=== PATIENT | female | born 1935 | race Caucasian/White ===

== ENCOUNTER 2018-06-23 22:24 | Inpatient (IN) | payer OTHER, BC ==
[2018-06-23 23:48] LABS: Absolute Lymphocytes (CBC) 1.3 K/uL (0.7-4.9); Absolute Monocytes 0.5 K/uL (0.1-1.3); Basophils % 0.4 % (0-1.3); Eosinophils % 0.4 % (0-4.4); Lymphocytes % 11.6 % (15.3-44.8); MCH 33.4 pg (27.0-35.0); MCV 97.1 fL (80-100); MPV 8.1 fL (7.6-11.3); Monocytes % 4.4 % (3.3-12.3); Protime INR 1.06
[2018-06-23 23:59] LABS: ALT/SGPT 21 U/L (12-78); AST/SGOT 24 U/L (15-37); Albumin 3.5 g/dL (3.4-5.0); Alkaline Phosphatase 103 U/L (45-117); BUN Blood Urea Nitrogen 31 mg/dL (7-18); Bicarbonate 25 mmol/L (21-32); Bilirubin Direct < 0.1 mg/dL (0-0.2); Bilirubin Total 0.2 mg/dL (0.2-1.0); Glucose Level 152 mg/dL (74-106); Magnesium 1.6 mg/dL (1.8-2.4); NT PRO-BNP 331 pg/mL (<450); Potassium 4.2 mmol/L (3.5-5.1); Protein, Total 6.4 g/dL (6.4-8.2); Sodium Level 144 mmol/L (136-145); Troponin (Emerg Dept Use Only) < 0.02 ng/mL (0.0-0.045)
--- NOTE | 2018-06-24 01:49 | EDPHYS ---
Physician Documentation [facility] Name: Kirsten Mayfield Age: 82 yrs Sex: Female : 1935 Arrival Date: 06/23/2018 Time: 22:28 Bed 5 Private MD: Joao Parkinson HPI: 06/23 23:29 This 82 yrs old Female presents to ER via Wheelchair with complaints of Leg angelica Pain, History of blood clots. 23:29 The patient presents with decreased range of motion, pain. The complaints affect the angelica lateral aspect of left thigh, lateral aspect of left calf, left hamstring, left calf, medial aspect of left thigh, medial aspect of left calf, left quadriceps and left ayoub. Context: The problem was sustained at an unknown site. Onset: The symptoms/episode began/occurred today. Modifying factors: The symptoms are alleviated by nothing. the symptoms are aggravated by movement. Associated signs and symptoms: The patient has no apparent associated signs or symptoms. Severity of symptoms: At their worst the symptoms were mild, in the emergency department the symptoms are unchanged. The patient has experienced similar episodes in the past, several times. Historical: - Allergies: 22:59 No Known Allergies; fc - Home Meds: 22:59 Lovenox 60 mg/0.6 mL Sub-Q syrg every 12 hours [Active]; omeprazole 40 mg Oral cpDR 1 fc cap once daily [Active]; valsartan-hydrochlorothiazide 160-12.5 mg oral tab 1 tab once daily [Active]; cyclobenzaprine 5 mg Oral tab 1 tab nightly [Active]; donepezil 10 mg oral tab 1 tab once daily [Active]; atorvastatin 20 mg oral tab 1 tab nightly [Active]; sertraline 50 mg oral tab 1 tab once daily [Active]; multivitamin oral tab daily [Active]; metoprolol tartrate 50 mg Oral tab 1 tab 2 times per day [Active]; amlodipine 5 mg tab 1 tab twice a day [Active]; Iron 27 mg daily [Active]; - PMHx: 22:57 colon cancer; ak1 22:59 colon cancer; DVT; Hernia; GERD; Hypertension; High Cholesterol; Dementia; CHF; fc - PSHx: 22:57 colon cancer sx; ak1 22:59 colon cancer sx; port-a-cath insertion and removal; emily filter; fc - Immunization history:: Last tetanus immunization: unknown, Pneumococcal vaccine is up to date, Flu vaccine is up to date. - Social history:: Smoking status: Patient/guardian denies using tobacco. - Ebola Screening: : Patient negative for fever greater than or equal to 101.5 degrees Fahrenheit, and additional compatible Ebola Virus Disease symptoms Patient denies exposure to infectious person Patient denies travel to an Ebola-affected area in the 21 days before illness onset. - Family history:: not pertinent. ROS: 23:29 Constitutional: Negative for fever, chills, and weight loss, Eyes: Negative for injury, angelica pain, redness, and discharge, ENT: Negative for injury, pain, and discharge, Neck: Negative for injury, pain, and swelling, Cardiovascular: Negative for chest pain, palpitations, and edema, Respiratory: Negative for shortness of breath, cough, wheezing, and pleuritic chest pain, Abdomen/GI: Negative for abdominal pain, nausea, vomiting, diarrhea, and constipation, Back: Negative for injury and pain, : Negative for injury, bleeding, discharge, and swelling, Skin: Negative for injury, rash, and discoloration, Neuro: Negative for headache, weakness, numbness, tingling, and seizure, Psych: Negative for depression, anxiety, suicide ideation, homicidal ideation, and hallucinations, Allergy/Immunology: Negative for hives, rash, and allergies, Endocrine: Negative for neck swelling, polydipsia, polyuria, polyphagia, and marked weight changes, Hematologic/Lymphatic: Negative for swollen nodes, abnormal bleeding, and unusual bruising. 23:29 MS/extremity: Positive for decreased range of motion, pain, of the left leg. Exam: 23:29 Constitutional: This is a well developed, well nourished patient who is awake, alert, angelica and in no acute distress. Head/Face: Normocephalic, atraumatic. Eyes: Pupils equal round and reactive to light, extra-ocular motions intact. Lids and lashes normal. Conjunctiva and sclera are non-icteric and not injected. Cornea within normal limits. Periorbital areas with no swelling, redness, or edema. ENT: Nares patent. No nasal discharge, no septal abnormalities noted. Tympanic membranes are normal and external auditory canals are clear. Oropharynx with no redness, swelling, or masses, exudates, or evidence of obstruction, uvula midline. Mucous membranes moist. Neck: Trachea midline, no thyromegaly or masses palpated, and no cervical lymphadenopathy. Supple, full range of motion without nuchal rigidity, or vertebral point tenderness. No Meningismus. Chest/axilla: Normal chest wall appearance and motion. Nontender with no deformity. No lesions are appreciated. Cardiovascular: Regular rate and rhythm with a normal S1 and S2. No gallops, murmurs, or rubs. Normal PMI, no JVD. No pulse deficits. Respiratory: Lungs have equal breath sounds bilaterally, clear to auscultation and percussion. No rales, rhonchi or wheezes noted. No increased work of breathing, no retractions or nasal flaring. Abdomen/GI: Soft, non-tender, with normal bowel sounds. No distension or tympany. No guarding or rebound. No evidence of tenderness throughout. Back: No spinal tenderness. No costovertebral tenderness. Full range of motion. Female : Normal external genitalia. Skin: Warm, dry with normal turgor. Normal color with no rashes, no lesions, and no evidence of cellulitis. Neuro: Awake and alert, GCS 15, oriented to person, place, time, and situation. Cranial nerves II-XII grossly intact. Motor strength 5/5 in all extremities. Sensory grossly intact. Cerebellar exam normal. Normal gait. Psych: Awake, alert, with orientation to person, place and time. Behavior, mood, and affect are within normal limits. 23:29 Musculoskeletal/extremity: Extremities: noted in the left leg: decreased ROM, pain, ROM: full active range of motion, full passive range of motion, Circulation is intact in all extremities. Compartment Syndrome exam of affected extremity: is normal. DVT Exam: no swelling, no tenderness, negative Homans' sign noted on exam, no appreciated bluish discoloration, no erythema, no increased warmth, pain. Vital Signs: 22:30 BP 156 / 72; Pulse 74; Resp 18; Temp 98.0(O); Pulse Ox 100% on R/A; Weight 55.79 kg fc (R); Height 5 ft. 3 in. (160.02 cm) (R); Pain 3/10; 23:44 BP 122 / 59; Pulse 66; Resp 17; Temp 98; Pulse Ox 97% on R/A; Pain 3/10; ak1 06/24 02:27 BP 122 / 55; Pulse 72; Resp 12; Temp 98.3; Pulse Ox 99% on R/A; Pain 0/10; ak1 03:31 BP 124 / 51; Pulse 76; Resp 18; Pulse Ox 96% ; ea 06/23 22:30 Body Mass Index 21.79 (55.79 kg, 160.02 cm) MDM: 06/23 22:36 Patient medically screened. [facility] 23:32 Data reviewed: vital signs, nurses notes, lab test result(s), EKG, radiologic studies, [facility] CT scan, doppler, plain films. 06/23 23:11 Order name: Basic Metabolic Panel; Complete Time: 01:37 06/23 23:11 Order name: CBC with Diff; Complete Time: 01:37 06/23 23:11 Order name: LFT's; Complete Time: 01:37 06/23 23:11 Order name: Magnesium; Complete Time: 01:37 06/23 23:11 Order name: NT PRO-BNP; Complete Time: 01:37 06/23 23:11 Order name: PT-INR; Complete Time: 01:37 06/23 23:11 Order name: Troponin (emerg Dept Use Only); Complete Time: 01:37 06/24 01:45 Order name: Lipase [facility] 06/24 01:46 Order name: Urine Culture [facility] 06/24 02:12 Order name: Basic Metabolic Panel [facility] 06/24 02:12 Order name: Basic Metabolic Panel [facility] 06/24 02:12 Order name: CBC with Automated Diff [facility] 06/24 02:12 Order name: CBC with Automated Diff [facility] 06/24 02:12 Order name: Troponin I [facility] 06/23 23:11 Order name: XRAY Chest (1 view) 06/23 23:12 Order name: Extrem Venous W Compression Jorge US 06/23 23:28 Order name: CT Abd/Pelvis - W/Contrast [facility] 06/24 02:12 Order name: Troponin I [facility] 06/24 02:12 Order name: Troponin I [facility] 06/24 02:12 Order name: Chest Single View [facility] 06/24 02:12 Order name: Chest Single View [facility] 06/24 02:56 Order name: Urine Dipstick--Ancillary (enter results) 2 06/24 03:35 Order name: Urine Dipstick-Ancillary [facility] 06/23 23:11 Order name: EKG; Complete Time: 23:19 06/23 23:11 Order name: Cardiac monitoring; Complete Time: 23:38 06/23 23:11 Order name: EKG - Nurse/Tech; Complete Time: 23:39 06/23 23:11 Order name: IV Saline Lock; Complete Time: 02:27 06/23 23:11 Order name: Labs collected and sent; Complete Time: 23:20 06/23 23:11 Order name: O2 Per Protocol; Complete Time: 23:20 06/23 23:11 Order name: O2 Sat Monitoring; Complete Time: 23:21 06/24 01:46 Order name: Urine Dipstick-Ancillary (obtain specimen); Complete Time: 02:53 [facility] 06/24 02:12 Order name: Consistent Carb (ADA) [address] EDIA 06/24 02:12 Order name: EKG Electrocardiogram [facility] 06/24 02:12 Order name: EKG Electrocardiogram EDMS 06/24 02:12 Order name: EKG Electrocardiogram EDMS 06/24 02:12 Order name: EKG Electrocardiogram EDMS Administered Medications: 06/24 00:54 Drug: NS 0.9% 1000 ml Route: IV; Rate: 125 ml/hr; Site: right upper arm; ak1 02:26 Follow up: IV Status: Infusion continued upon admission ak1 02:23 Drug: Pepcid 20 mg Route: IVP; Site: right upper arm; ak1 02:25 Follow up: Response: No adverse reaction ak1 02:23 Drug: Magnesium Sulfate 1 grams Route: IVPB; Infused Over: 1 hrs; Site: right upper arm;ak1 02:26 Follow up: IV Status: Infusion continued upon admission ak1 02:24 Drug: Lovenox 1 mg/kg Route: Sub-Q; Site: left thigh; ak1 02:26 Follow up: Response: No adverse reaction ak1 02:24 Drug: fentaNYL (PF) 25 mcg Route: IVP; Site: right upper arm; ak1 02:25 Follow up: Response: No adverse reaction ak1 02:24 Drug: Zofran 4 mg Route: IVP; Site: right upper arm; ak1 02:25 Follow up: Response: No adverse reaction ak1 02:24 Drug: Rocephin - (cefTRIAXone) 1 grams Route: IVPB; Infused Over: 30 mins; Site: right ak1 upper arm; 02:25 Follow up: IV Status: Completed infusion ak1 Disposition: 06/24/18 01:49 Hospitalization ordered by Solis Gonzalez for Observation. Preliminary diagnosis are Acute embolism and thrombosis of femoral vein, Nausea, Unspecified kidney failure, Hypomagnesemia, Pain in left leg - left posterior medial thigh hematoma. - Bed requested for Telemetry/MedSurg (observation). - Status is Observation. ea - Condition is Fair. - Problem is new. - Symptoms have improved. UTI on Admission? No Signatures: Dispatcher [employer] EDMS Melanie Souza RN RN kl Anderson, Corey, MD MD cha Chretien, Felicia, RN RN fc Krenek, Amber, RN RN akAnkita Jessica RN RN ea Corrections: (The following items were deleted from the chart) 02:12 01:49 Hospitalization Ordered by Solis Gonzalez MD for Observation. Preliminary diagnosis angelica is Acute embolism and thrombosis of femoral vein; Nausea; Unspecified kidney failure; Hypomagnesemia. Bed requested for Telemetry/MedSurg (observation). Status is Observation. Condition is Fair. Problem is new. Symptoms have improved. UTI on Admission? No. angelica 03:04 02:12 06/24/2018 01:49 Hospitalization Ordered by Solis Gonzalez MD for Observation. kl Preliminary diagnosis is Acute embolism and thrombosis of femoral vein; Nausea; Unspecified kidney failure; Hypomagnesemia; Pain in left leg - left posterior medial thigh hematoma. Bed requested for Telemetry/MedSurg (observation). Status is Observation. Condition is Fair. Problem is new. Symptoms have improved. UTI on Admission? No. angelica 03:45 03:04 06/24/2018 01:49 Hospitalization Ordered by Solis Gonzalez MD for Observation. ea Preliminary diagnosis is Acute embolism and thrombosis of femoral vein; Nausea; Unspecified kidney failure; Hypomagnesemia; Pain in left leg - left posterior medial thigh hematoma. Bed requested for Telemetry/MedSurg (observation). Status is Observation. Condition is Fair. Problem is new. Symptoms have improved. UTI on Admission? No. kl
--- NOTE | 2018-06-24 01:49 | ER ---
Nurse's Notes [facility] Name: Kirsten Mayfield Age: 82 yrs Sex: Female : 1935 Arrival Date: 06/23/2018 Time: 22:28 Bed 5 Private MD: Diagnosis: Acute embolism and thrombosis of femoral vein;Nausea;Unspecified kidney failure;Hypomagnesemia;Pain in left leg-left posterior medial thigh hematoma Presentation: 06/23 22:30 Presenting complaint: Patient states: that she is having left leg pain that starts at fc the top and goes down to the ankle. States it has gotten worse over the day. Also having nausea so she is not eating well. Transition of care: patient was not received from another setting of care. Onset of symptoms was June 23, 2018. Risk Assessment: Do you want to hurt yourself or someone else? Patient reports no desire to harm self or others. Initial Sepsis Screen: Does the patient meet any 2 criteria? Yes Does the patient have a suspected source of infection? No. Patient's initial sepsis screen is negative. Care prior to arrival: None. 22:30 Method Of Arrival: Wheelchair 22:30 Acuity: STEFFEN 3 fc Historical: - Allergies: 22:59 No Known Allergies; fc - Home Meds: 22:59 Lovenox 60 mg/0.6 mL Sub-Q syrg every 12 hours [Active]; omeprazole 40 mg Oral cpDR 1 fc cap once daily [Active]; valsartan-hydrochlorothiazide 160-12.5 mg oral tab 1 tab once daily [Active]; cyclobenzaprine 5 mg Oral tab 1 tab nightly [Active]; donepezil 10 mg oral tab 1 tab once daily [Active]; atorvastatin 20 mg oral tab 1 tab nightly [Active]; sertraline 50 mg oral tab 1 tab once daily [Active]; multivitamin oral tab daily [Active]; metoprolol tartrate 50 mg Oral tab 1 tab 2 times per day [Active]; amlodipine 5 mg tab 1 tab twice a day [Active]; Iron 27 mg daily [Active]; - PMHx: 22:57 colon cancer; ak1 22:59 colon cancer; DVT; Hernia; GERD; Hypertension; High Cholesterol; Dementia; CHF; fc - PSHx: 22:57 colon cancer sx; ak1 22:59 colon cancer sx; port-a-cath insertion and removal; emily filter; fc - Immunization history:: Last tetanus immunization: unknown, Pneumococcal vaccine is up to date, Flu vaccine is up to date. - Social history:: Smoking status: Patient/guardian denies using tobacco. - Ebola Screening: : Patient negative for fever greater than or equal to 101.5 degrees Fahrenheit, and additional compatible Ebola Virus Disease symptoms Patient denies exposure to infectious person Patient denies travel to an Ebola-affected area in the 21 days before illness onset. - Family history:: not pertinent. Screenin:30 Abuse screen: Denies threats or abuse. Nutritional screening: No deficits noted. fc Tuberculosis screening: No symptoms or risk factors identified. Fall Risk Fall in past 12 months (25 points). Secondary diagnosis (15 points) dementia, No IV (0 pts). Ambulatory Aid- Crutches/Cane/Walker (15 pts). Gait- Weak (10 pts.). Mental Status- Overestimates/Forgets Limitations (15 pts.). Total [place] Fall Scale indicates High Risk Score (45 or more points). Fall prevention measures have been instituted. Side Rails Up X 2 Placed Close to Nursing Station Frequent Obs/Assessments Occuring Family Present and informed to notify staff if the need to leave the bedside As available patient and family educated on Fall Prevention Program and Strategies. Assessment: 22:54 General: Appears in no apparent distress. Behavior is calm, cooperative. ak1 22:54 Pain: Complains of pain in left leg. Neuro: No deficits noted. Cardiovascular: No ak1 deficits noted. Respiratory: No deficits noted. GI: No signs and/or symptoms were reported involving the gastrointestinal system. : No signs and/or symptoms were reported regarding the genitourinary system. EENT: No signs and/or symptoms were reported regarding the EENT system. Derm: No signs and/or symptoms reported regarding the dermatologic system. Musculoskeletal: Reports pain in left leg pt stated she places her Lovenox SUBQ injections in her legs, she stated she doesn't want to "pop my hernia in my stomach". 23:42 Reassessment: Patient appears in no apparent distress at this time. No changes from ak1 previously documented assessment. Patient is alert, oriented x 3, equal unlabored respirations, skin warm/dry/pink. pt and family informed of need for CT and US. 06/24 00:31 Reassessment: charge nurse at bedside for midline placement. ak1 01:06 Reassessment: pt in CT. ak1 02:21 Reassessment: Patient appears in no apparent distress at this time. No changes from ak1 previously documented assessment. Patient and/or family updated on plan of care and expected duration. Pain level reassessed. Patient is alert, oriented x 3, equal unlabored respirations, skin warm/dry/pink. 03:31 Reassessment: Patient and/or family updated on plan of care and expected duration. Pain ea level reassessed. Patient is alert, oriented x 3, equal unlabored respirations, skin warm/dry/pink. Report called to receiving nurse Sarah on second floor. Vital Signs: 06/23 22:30 BP 156 / 72; Pulse 74; Resp 18; Temp 98.0(O); Pulse Ox 100% on R/A; Weight 55.79 kg fc (R); Height 5 ft. 3 in. (160.02 cm) (R); Pain 3/10; 23:44 BP 122 / 59; Pulse 66; Resp 17; Temp 98; Pulse Ox 97% on R/A; Pain 3/10; ak1 06/24 02:27 BP 122 / 55; Pulse 72; Resp 12; Temp 98.3; Pulse Ox 99% on R/A; Pain 0/10; ak1 03:31 BP 124 / 51; Pulse 76; Resp 18; Pulse Ox 96% ; ea 06/23 22:30 Body Mass Index 21.79 (55.79 kg, 160.02 cm) fc ED Course: 06/23 22:28 Patient arrived in ED. es 22:30 Arm band placed on Patient placed in an exam room, on a stretcher. fc 22:30 Patient has correct armband on for positive identification. Placed in gown. Bed in low fc position. Call light in reach. Side rails up X 1. Pulse ox on. NIBP on. 22:36 Joao Mckinley MD is Attending Physician. angelica 22:43 Evon Tomas, RN is Primary Nurse. ak1 22:51 Triage completed. fc 22:54 Missed attempt(s): 22 gauge in right antecubital area. Bleeding controlled, band aid ak1 applied, catheter tip intact. 23:39 X-ray completed. Portable x-ray completed in exam room. Patient tolerated procedure kp1 well. 23:42 XRAY Chest (1 view) In Process Unspecified. EDMS 06/24 00:16 Radiology exam delayed due to Ultrasound being done at this time. kw1 00:26 Extrem Venous W Compression Jorge US In Process Unspecified. EDMS 00:34 Ultrasound completed. Patient tolerated well. cy 01:[address] via stretcher. kw1 01:16 CT Abd/Pelvis - W/Contrast In Process Unspecified. EDMS 01:18 CT completed. Patient tolerated procedure well. Patient moved back from CT. kw1 01:47 Solis Gonzalez MD is Hospitalizing Provider. angelica 03:29 No provider procedures requiring assistance completed. Patient admitted, IV remains in ea place. Administered Medications: 00:54 Drug: NS 0.9% 1000 ml Route: IV; Rate: 125 ml/hr; Site: right upper arm; ak1 02:26 Follow up: IV Status: Infusion continued upon admission ak1 02:23 Drug: Pepcid 20 mg Route: IVP; Site: right upper arm; ak1 02:25 Follow up: Response: No adverse reaction ak1 02:23 Drug: Magnesium Sulfate 1 grams Route: IVPB; Infused Over: 1 hrs; Site: right upper arm;ak1 02:26 Follow up: IV Status: Infusion continued upon admission ak1 02:24 Drug: Lovenox 1 mg/kg Route: Sub-Q; Site: left thigh; ak1 02:26 Follow up: Response: No adverse reaction ak1 02:24 Drug: fentaNYL (PF) 25 mcg Route: IVP; Site: right upper arm; ak1 02:25 Follow up: Response: No adverse reaction ak1 02:24 Drug: Zofran 4 mg Route: IVP; Site: right upper arm; ak1 02:25 Follow up: Response: No adverse reaction ak1 02:24 Drug: Rocephin - (cefTRIAXone) 1 grams Route: IVPB; Infused Over: 30 mins; Site: right ak1 upper arm; 02:25 Follow up: IV Status: Completed infusion ak1 Outcome: 01:49 Decision to Hospitalize by Provider. angelica 02:30 Instructed on the need for admit. ea 03:30 Admitted to Med/surg accompanied by tech, room 211, Report called to Receiving nurse larry Smith on second floor 03:30 Condition: stable ea 03:45 Patient left the ED. larry Signatures: Dispatcher [employer] Joao Zeng MD MD cha Salyer, Edna es Chretien, Felicia, RN RN Evon Galindo RN RN ak1 Alea Barrera kp1 Ankita Rouse RN RN ea Wilhelm, Kimberly kw Boubacar Reis
[2018-06-24] MEDS ORDERED: ONDANSETRON 4 MG/2 ML VIAL IV PRN (02:04)
[2018-06-24] MEDS ORDERED: FENTANYL CITR 100 MCG/2 ML ONE (02:18)
[2018-06-24] MEDS ORDERED: ENOXAPARIN 80 MG/0.8 ML SQ ONE (02:18)
[2018-06-24] MEDS ORDERED: MAGNESIUM SULFATE 1 gm IVPB 1 GM/100 ML BAG IV ONE (02:18)
[2018-06-24] MEDS ORDERED: ONDANSETRON 4 MG/2 ML VIAL ONE (02:18)
[2018-06-24] MEDS ORDERED: FAMOTIDINE 20 MG/2 ML VIAL IV ONE (02:19)
[2018-06-24] MEDS ORDERED: CEFTRIAXONE/SWI 1gm 1 GM/10 ML SYR ONE (02:19)
[2018-06-24 03:35] LABS: Urine Blood NEGATIVE (NEG); Urine Glucose NEGATIVE (NEG); Urine Protein NEGATIVE (NEG); Urine Specific Gravity 1.015 (1.005-1.030); Urine pH 5.5 (5.0-7.0)
[2018-06-24 04:11] VITALS: BMI 22.4
[2018-06-24] MEDS: NA CHLORIDE 0.9% 1,000 ML IV SCH ×3 (04:37→19:15)
[2018-06-24] MEDS: ACETAMINOPHEN 500 MG TAB PO PRN (06:02)
--- NOTE | 2018-06-24 07:03 | EKG ---
Test Date: 2018-06-23 Test Time: 23:34:19 Air Traffic Control Specialist: LETTY MEASUREMENT RESULTS: Intervals: Rate: 70 MI: 160 QRSD: 76 QT: 396 QTc: 427 [place]: P: 41 MI: 160 QRS: -27 T: 62 INTERPRETIVE STATEMENTS: Normal sinus rhythm Normal ECG Compared to ECG 02/16/2014 09:51:41 Atrial premature complex(es) no longer present Electronically Signed On 06-24-18 07:02:59 MACHINE LEATHER TRIMMER by Kiel Villanueva
[2018-06-24] MEDS ORDERED: ASPIRIN EC 81 MG TAB PO SCH (09:00)
[2018-06-24] MEDS ORDERED: FAMOTIDINE 20 MG/2 ML VIAL IV SCH (09:00)
[2018-06-24] MEDS: MORPHINE 4 MG/ML SYR IV PRN ×4 (09:12→21:17)
[2018-06-24] MEDS: MAGNESIUM OXIDE 400 MG TAB PO SCH ×2 (09:13→21:09)
--- NOTE | 2018-06-24 09:29 | RAD REPORT ---
EXAM DESCRIPTION: CTAbdomen Pelvis W Contrast - 06/24/2018 3:02 am CLINICAL HISTORY: Abdominal pain. ABD PAIN COMPARISON: Lumbar Spine 3 Views dated 08/18/2016 TECHNIQUE: Biphasic CT imaging of the abdomen and pelvis was performed with 100 ml non-ionic IV cont rast. All CT scans are performed using dose optimization technique as appropriate and may include automated exposure control or mA/KV adjustment according to patient size. FINDINGS: The inferior lung bases are emphysematous but clear. Mild diffuse fatty liver is present. The spleen, pancreas, adrenal glands are normal. Renal cysts are present bilaterally without hydronephrosis. IVC filter is in place. Aortic atherosclerosis. No bowel obstruction, free air, free fluid or abscess. Focal ventral hernias are present with postsur gical clips noted. Postsurgical changes are present about the right colon. No evidence of significan t lymphadenopathy. Thickening of the left posteromedial thigh adductor musculature seen, probably rel ated to hematoma or muscle thickening. Moderate chronic L1 compression fracture is present. 10 mm anterolisthesis of L4 on 5. IMPRESSION: Partially visualized thickening posterior tibial left thigh adductor musculature may be related to muscle trauma or hematoma. Myositis or a soft tissue mass within the muscle is considered less likely. Ventral hernia containing colon without obstruction.
--- NOTE | 2018-06-24 09:41 | RAD REPORT ---
EXAM DESCRIPTION: US - Extrem Venous W Compress Jorge - 06/24/2018 12:29 am CLINICAL HISTORY: PAIN Bilateral leg edema and swelling. COMPARISON: No comparisons TECHNIQUE: Real-time sonographic interrogation of the left and right lower extremity deep venous sys tems was performed. FINDINGS: Partial compressibility is seen distal left femoral vein. Elsewhere, no evidence of DVT se en bilaterally. IMPRESSION: Partial compressibility distal left femoral vein probably is related old thrombus. There is no convincing evidence of acute bilateral DVT.
--- NOTE | 2018-06-24 09:53 | RAD REPORT ---
EXAM DESCRIPTION: RAD - Chest Single View - 06/23/2018 11:41 pm CLINICAL HISTORY: DVT Chest pain. COMPARISON: CHEST SINGLE VIEW dated 02/16/2014 FINDINGS: Portable technique limits examination quality. The lungs are grossly clear. The heart is normal in size. No displaced fractures.Mildly tortuous thor acic aorta. IMPRESSION: No acute intrathoracic process suspected.
--- NOTE | 2018-06-24 12:24 | RAD REPORT ---
EXAM DESCRIPTION: RAD - Hip Bilateral With Pelvis - 06/24/2018 11:33 am CLINICAL HISTORY: rule out fracture Left anterior groin pain COMPARISON: PELVIS dated 02/16/2014; Abdomen Pelvis W Contrast dated 06/24/2018 FINDINGS: Diffuse osteopenia is present. [id number] osteoarthritis is present. No fracture, di slocation or AVN. Contrast is present in urinary bladder.
[2018-06-24 17:17] LABS: Absolute Lymphocytes (CBC) 1.7 K/uL (0.7-4.9); Absolute Monocytes 0.8 K/uL (0.1-1.3); Absolute Neutrophil 5.4 K/uL (1.8-8.0); Basophils % 0.4 % (0-1.3); Eosinophils % 1.7 % (0-4.4); Hematocrit 24.1 % (36.0-45.0); Lymphocytes % 21.6 % (15.3-44.8); MCH 33.2 pg (27.0-35.0); MCV 98.4 fL (80-100); MPV 7.3 fL (7.6-11.3); Monocytes % 9.8 % (3.3-12.3); RBC Red Blood Cell Count 2.45 M/uL (3.86-4.86)
[2018-06-24] MEDS: ATORVASTATIN CALCIUM 20 MG PO SCH (17:28)
[2018-06-24 17:33] LABS: Potassium 3.8 mmol/L (3.5-5.1)
[2018-06-24] MEDS: CYCLOBENZAPRINE 5 MG PO SCH (21:09)
[2018-06-24] MEDS: METOPROLOL TARTRATE 50 MG PO SCH (21:10)
[2018-06-25] MEDS ORDERED: ENOXAPARIN 60 MG/0.6 ML SQ SCH (06:00)
[2018-06-25 06:02] LABS: Potassium 4.3 mmol/L (3.5-5.1)
[2018-06-25 06:22] LABS: Absolute Monocytes 0.8 K/uL (0.1-1.3); Basophils % 0.4 % (0-1.3); Eosinophils % 1.4 % (0-4.4); Hematocrit 23.4 % (36.0-45.0); Lymphocytes % 11.5 % (15.3-44.8); MCH 33.4 pg (27.0-35.0); MCV 97.1 fL (80-100); MPV 7.7 fL (7.6-11.3); RBC Red Blood Cell Count 2.41 M/uL (3.86-4.86)
[2018-06-25] MEDS: NA CHLORIDE 0.9% 1,000 ML IV SCH (06:25)
[2018-06-25] MEDS: DONEPEZIL HCL 10 MG PO SCH (06:26)
--- NOTE | 2018-06-25 06:33 | HP ---
Date of Admission: 06/24/2018 Chief Complaint: Leg pain. History Of Present Illness: This is an 82-year-old female patient with history of colon cancer and D VT who failed oral anticoagulant therapy, has been on Lovenox injection at home that she gives hersel f for last several years. She has done well with this. Lately she is having some memory problem and yesterday she came into emergency room because of complaints of pain in her left proximal thigh to m id thigh and pain is on medial and lateral aspect. The patient gives her Lovenox injection in latera l thigh. She has some old bruises and small hematoma on the right lateral thigh from this Lovenox [facility]. After she was evaluated in the emergency room, she was admitted to hospital. She denies an y fall or injury. No blood in stool. When I saw her this morning, the patient reported there was a large area of rash which was not there yesterday. The patient's daughter tells me that the patient i s not able to get up and walk because of this leg pain. The patient lives by herself, so we do not k now if there was any fall or injury that she may not be able to recollect. After I saw today, order was written for physical therapy consultation and nurse contacted and informed me that the patient wa s able to ambulate somewhat with physical therapy, but her heart rate went up to 200 and they had to get her back in the bed and then her heart rate subsided to 72 range. At that time, repeat blood wor k was ordered and her hemoglobin has now dropped down to 8.1 from 11 when she came in. Past Medical History: Significant for hypertension, nocturnal leg cramps, hyperlipidemia, colon canc er, diverticulosis, abdominal wall hernia, impaired fasting glucose, gastroesophageal reflux disease. Past Surgical History: Significant for partial colectomy in 2006 for colon cancer and removal of ski n cancer. Family History: Significant for coronary artery disease, diabetes, hypertension. Social History: Negative for smoking or alcohol use. Allergies: NO KNOWN ALLERGIES. Review of Systems: Musculoskeletal: As mentioned above. Dermatology: As mentioned above. All other systems reviewed and negative. Physical Examination: Vital Signs: Last temperature 96.8, pulse 65, respiratory rate 20, blood pressure 123/57, oxygen sat uration 95%. Height 5 feet 3 inches, weight 126 pounds. Oxygen saturation 95%. General: Awake, alert, oriented, not in distress. HEENT: Head atraumatic, normocephalic. Conjunctivae nonerythematous. Sclerae white. Mouth, no thr ush or edema noted. Ears/Nose, no mass, lesion, discharge noted. Neck: Supple. No JVD, lymph nodes, bruit, thyromegaly noted. Lungs: Bilateral good equal air entry. Clear to auscultation. No rhonchi. No rales. Heart: Normal heart sounds, no murmur or gallop. Abdomen: Abdomen shows abdominal wall hernia which is nothing new, is an old finding. No evidence o f any obstruction. No tenderness and both anterior abdominal wall on the right and the left side has appearance of old bruising. The patient reports that she does not give any Lovenox injection in her abdominal wall because of hernia. She is concerned about giving an injection in the abdominal wall. Otherwise, abdomen is soft. No guarding, rigidity, tenderness, distention. No hepatosplenomegaly. No bruit. Extremities: Both lateral thigh has old bruising. Right lateral thigh has small hematoma about 2 to 3 cm in size. Left medial thigh has large area of rash, new contusion, which was not present yester day as per patient's family. Skin: No rash, ulcer, cellulitis. Lymphatics: No lymph node enlargement in neck, supraclavicular, infraclavicular region. Neuro: No focal neurological deficit. Chest: Unremarkable. External Genitalia: Deferred. Rectal: Deferred. Laboratory Data: Venous Doppler of lower extremity shows old blood clot in left leg. No new thrombu s. CAT scan of abdomen and pelvis negative for any acute abnormality, evidence of abdominal wall her susan present, otherwise no other acute findings. White count 10.9, hemoglobin 11, and platelets 280. Repeat hemoglobin this afternoon was 8.1. Sodium 144, potassium 4.2, chloride 109, bicarb 25, BUN 3 1, creatinine 1.10, glucose 152, magnesium 1.6. Liver function tests unremarkable. Troponin less th an 0.02. Lipase 150. Urinalysis negative. Impression: 1.Acute blood loss anemia. 2.Contusion, left thigh. Coagulation therapy. 3.Hypercoagulable state. 4.Hypertension. 5.Colon cancer. 6.Hyperlipidemia. 7.Gastroesophageal reflux disease. 8.Impaired fasting glucose. 9.Diverticulosis. 10.Abdominal wall hernia. Plan: Admit the patient to hospital for further evaluation and management of this problem. The zahra ent is appropriate for inpatient and is expected to spend 2 midnights in hospital. The patient has d ropped 3 g of hemoglobin from the time she presented to the emergency room until this afternoon and s he is symptomatic from this anemia with significant tachycardia problem, which was noted today when s he was trying to ambulate with physical therapy. After she was brought to room, her vital signs got stabilized. We will go ahead and monitor her blood work again tomorrow morning, if necessary conside r blood transfusion. We will not give any anticoagulation therapy at this point. We will have to ma ke decision about whether we will continue her Lovenox or change it to something else. Obviously, it is important to keep in mind that she has failed oral anticoagulation therapy in the past, and while on oral anticoagulation therapy, she developed blood clots over last few years to several years. Amrik arias has been on Lovenox and has done very well and has not had any new blood clot ever since she was on Lovenox. We do not know the etiology of this left thigh contusion, whether she had any fall and inj ury at home that she is not able to recollect, that is 1 possibility, and the family is concerned abo ut when she came into ER she had venous Doppler done, and the patient and family says that lot of pre ssure was used for Doppler study, and they are raising question if that could have caused this bruisi ng which I am not convinced, but obviously we have to keep that in back of our mind. She also has br uising of her anterior abdominal wall on both sides and that is very faint blue discoloration so that is very old. In any case, at this point, we will monitor her. Continue home medications per order except anticoagulation therapy and consultation was requested from tile layer supervisor and physical therapy. Hip and pelvis x-ray were negative for any acute fracture or acute finding as osteoarthritis change s, but no other acute findings. VIKY/MODL Voice ID: [id number]
[2018-06-25] MEDS ORDERED: HYDROCODONE/APAP 5/325 MG TAB PO PRN (06:40)
[2018-06-25] MEDS: MORPHINE 4 MG/ML SYR IV PRN (08:40)
[2018-06-25] MEDS: FE SULF/FA/VIT B COMP & C TAB PO SCH (08:41)
[2018-06-25] MEDS: MAGNESIUM OXIDE 400 MG TAB PO SCH ×2 (08:42→20:54)
[2018-06-25] MEDS: METOPROLOL TARTRATE 50 MG PO SCH ×2 (08:42→20:49)
[2018-06-25] MEDS: IRON 27 MG PO SCH (08:44)
[2018-06-25] MEDS: OMEPRAZOLE 40 MG PO SCH (08:54)
[2018-06-25] MEDS: VALSARTAN HCTZ PO SCH (08:54)
--- NOTE | 2018-06-25 09:06 | RAD REPORT ---
EXAM DESCRIPTION: RAD - Chest Single View - 06/25/2018 6:26 am CLINICAL HISTORY: Chest Pain Chest pain. COMPARISON: Chest Single View dated 06/23/2018; CHEST SINGLE VIEW dated 02/16/2014 FINDINGS: Portable technique limits examination quality. Emphysematous changes are present throughout the lungs. Few small opacities in the right lower lung f ield may represent small areas of aspiration or infiltrate. The heart is normal in size. Tortuous and atherosclerotic thoracic aorta seen.
--- NOTE | 2018-06-25 11:17 | PN ---
Date of Progress Note: 06/25/2018 Subjective: The patient was seen this morning for followup. No new complaints or problems reported by her this morning overnight, except some pain in her left thigh. No abdominal pain. No nausea or vomiting. Her appetite is fair. Last bowel movement was on Sunday and denies any blood in the sto ol. Objective: Vital Signs: Reviewed. Last temperature 98.1, pulse 92, respiratory rate 16, blood pres sure 139/65. HEENT: Unremarkable. Lungs: Clear to auscultation. Heart: Heart sounds normal. Abdomen: Soft. Bowel sounds normal. No guarding, rigidity, tenderness, or distention. Extremities: No leg edema. Left thigh, large area of bruising on the left medial thigh remains unch anged. Old bruising on the lateral thigh remains unchanged. Laboratory Data: White count this morning is 9, hemoglobin 8.1, platelets 201. Hemoglobin today 8.1 , is same as yesterday's hemoglobin of 8.1, the day before yesterday when she came in was 11. Sodium 141, potassium 4.3, chloride 109, bicarb 27, BUN 15, creatinine 0.8, glucose 126. Impression: 1.Acute blood loss anemia. 2.Contusion, left eye. 3.Hypercoagulable state. 4.Chronic anticoagulation therapy. 5.Colon cancer. 6.History of deep venous thrombosis. 7.Hypertension. Plan: We will go ahead and continue current medical management. Lovenox injection was ordered to be discontinued yesterday, but before we gave her any Lovenox she actually had received her dose as soraida nithin gave it to her using her home medication supply. After that the nurse did inform to make sure th at they do not give any Lovenox. We will go ahead and discontinue IV fluid. Continue pain medicatio ns per order. The patient has morphine ordered for pain and will also have oral pain medications gonsalo ilable for her p.r.n. use. We will monitor the patient's hemoglobin. If necessary, give blood trans fusion. There is no need for blood transfusion at this point. We will apply SCD to both legs. The patient to continue to work with physical therapy and leg exercises while lying in the bed, was advis ed to her to reduce chances of DVT. Hematology consultation is pending. We may not know exact etiol ogy of this extensive bruising in the left thigh, but that is the source of her acute blood loss anem ia at this point, and on one hand she needs blood thinner medication, which is her anticoagulation me dication Lovenox, but at this point, until she is stabilized, we will not be able to give it to her. During the time she is not able to take anticoagulant medication, she is at risk of having DVT, so l eg exercises, ambulation, and SCD will be used to help minimize risk of blood clot. At appropriate t corinna, we will restart her anticoagulant medication. Details were discussed with the patient and jc henderson. I will see her tomorrow for followup and will do blood work tomorrow morning. VIKY/MODL Voice ID: [id number] Report ID: [id number]
[2018-06-25] MEDS: ATORVASTATIN CALCIUM 20 MG PO SCH (17:30)
[2018-06-25] MEDS: ACETAMINOPHEN 500 MG TAB PO PRN (18:08)
[2018-06-25] MEDS: CYCLOBENZAPRINE 5 MG PO SCH (20:53)
[2018-06-26 05:58] LABS: Absolute Lymphocytes (CBC) 1.1 K/uL (0.7-4.9); Absolute Monocytes 0.9 K/uL (0.1-1.3); Absolute Neutrophil 6.6 K/uL (1.8-8.0); Basophils % 0.3 % (0-1.3); Eosinophils % 1.8 % (0-4.4); Hematocrit 21.3 % (36.0-45.0); Lymphocytes % 12.1 % (15.3-44.8); MCH 33.3 pg (27.0-35.0); MCV 96.9 fL (80-100); MPV 7.5 fL (7.6-11.3); Monocytes % 9.8 % (3.3-12.3)
[2018-06-26] MEDS: DONEPEZIL HCL 10 MG PO SCH (06:07)
[2018-06-26] MEDS: IRON 27 MG PO SCH (09:39)
[2018-06-26] MEDS: OMEPRAZOLE 40 MG PO SCH (09:39)
[2018-06-26] MEDS: METOPROLOL TARTRATE 50 MG PO SCH ×2 (09:39→20:42)
[2018-06-26] MEDS: MAGNESIUM OXIDE 400 MG TAB PO SCH ×2 (09:40→20:43)
[2018-06-26] MEDS: FE SULF/FA/VIT B COMP & C TAB PO SCH (09:40)
[2018-06-26 12:04] VITALS: O2SAT 94
[2018-06-26] MEDS: VALSARTAN HCTZ PO SCH (12:08)
[2018-06-26] MEDS ORDERED: NA CHLORIDE 0.9% 250 ML ONE ×2 (16:41→22:00)
--- NOTE | 2018-06-26 18:43 | PN ---
Date of Progress Note: 06/26/2018 Subjective: The patient was seen this morning for followup. She denies any new complaints or pain i n the left thigh, is better, but bruising is progressing and it is involving entire left medial thigh and left medial knee and area of the lower leg just below the knee on the left side. Yesterday, she did try to ambulate, but she was not able to ambulate as well as day before as she says. Objective: Vital Signs: Reviewed. HEENT: Unremarkable. Lungs: Clear to auscultation. Heart: Sounds normal. Abdomen: Soft. Bowel sounds normal. No guarding, rigidity, tenderness, distention. She also has s ome bruising of abdominal wall. Extremities: No leg edema. Left leg examination shows extensive area of bruising on the medial thig h and upper medial leg. Laboratory Data: Stool occult blood pending. Sodium 141, potassium 4, chloride 108, bicarb 27, BUN 14, creatinine 0.8, glucose 114. White count 8.7, hemoglobin 7.3, platelets 191. Impression: 1.Acute blood loss anemia. 2.Colon cancer. 3.Hypercoagulable state. 4.Chronic anticoagulation therapy. 5.Abdominal wall hernia. 6.History of DVT of leg. Plan: We will go ahead and continue current medications. The patient's anticoagulation therapy, whi ch is Lovenox, is on hold right now until her condition is stable and then, we will restart her antic oagulation therapy. Today, her blood count has dropped down. Hemoglobin is down to 7.3. She came i n with hemoglobin of 11. The patient is having symptomatic anemia, has tiredness, weakness and espec ially when she stands and walks. She has more weakness and tiredness and it is affecting her ambulat ion as well. Her heart rate went up, day before yesterday when she was trying to ambulate with this anemia problem. The patient will benefit from blood transfusion. We will go ahead and give 2 units of packed red cell blood transfusion to her and the consultation was requested for fruit or nut grower to ev aluate her. VIKY/MODL Voice ID: [id number] Report ID: [id number]
[2018-06-26] MEDS: CYCLOBENZAPRINE 5 MG PO SCH (20:40)
[2018-06-26] MEDS ORDERED: ATORVASTATIN CALCIUM 20 MG PO SCH (21:00)
[2018-06-27 04:49] LABS: Hematocrit 26.6 % (36.0-45.0)
[2018-06-27] MEDS: DONEPEZIL HCL 10 MG PO SCH (06:02)
[2018-06-27] MEDS: IRON 27 MG PO SCH (09:00)
[2018-06-27] MEDS: VALSARTAN HCTZ PO SCH (09:00)
[2018-06-27] MEDS: MAGNESIUM OXIDE 400 MG TAB PO SCH (09:13)
[2018-06-27] MEDS: FE SULF/FA/VIT B COMP & C TAB PO SCH (09:13)
[2018-06-27] MEDS: METOPROLOL TARTRATE 50 MG PO SCH (09:15)
[2018-06-27] MEDS: OMEPRAZOLE 40 MG PO SCH (09:16)
--- NOTE | 2018-06-27 10:46 | PN ---
Date of Progress Note: 06/27/2018 Subjective: The patient was seen this morning for followup. No new complaints or problems reported by the patient except some swelling in the left leg. Objective: Heart: Sounds normal. Abdomen: Soft. Bowel sounds normal. No guarding, rigidity, tenderness, or distention. Extremity: Extensive bruising on the left medial thigh and upper left medial leg with some soft tiss ue swelling around the bruising especially around the upper medial leg region. No evidence of any ce llulitis. HEENT: Unremarkable. Laboratory Data: Hemoglobin 9.3 done this morning after 2 units of packed red cell blood transfusion . Impression: 1.Acute blood loss anemia. 2.Contusion, left thigh. 3.Chronic anticoagulation therapy. 4.Prior history of deep venous thrombosis. 5.Colon cancer. 6.Hypertension. Plan: The patient reports that yesterday she did ambulate very well. She feels much better and hemo dynamically, she is stable. Our plan is to repeat another hemoglobin test this afternoon and dependi ng on that result, we will decide if we can discharge her to go home today or not. The patient wants to go home if possible today. Medically, she is stable. I did talk to Dr. [place] yesterday and after reviewing the patient's records, she gave the recommendation that the patient no longer needs to con tinue her anticoagulation therapy, which is her Lovenox and we do not need to replace with any other anticoagulation therapy. In fact, with this extensive bruising now, when maintain that anticoagulati on therapy is contraindicated, but in any case, the patient does not need to continue it anymore and all these details were discussed with the patient and her daughter at bedside today. I did inform th e patient that at some appropriate time, we will decide for her to start taking aspirin, but until th at time, she should not take any aspirin and she was also advised not to take any nonsteroidal anti-i nflammatory medications like Aleve, Motrin, ibuprofen, etc. VIKY/MODL Voice ID: [id number] Report ID: [id number]
[2018-06-27] MEDS ORDERED: VALSARTAN HCTZ PO SCH (12:00)
[2018-06-27] MEDS ORDERED: MORPHINE 2 MG/ML SYR IV PRN (14:00)
[2018-06-27 14:16] LABS: Hematocrit 27.1 % (36.0-45.0)
[2018-06-27 14:37] VITALS: BP 120/58; TEMP 98.3
== END 2018-06-27 16:09 | disposition home or self-care (01) | DRG 812 ==
LOC: ER 22:24 → ERHOLD 06-24 01:55 → OBSVTOIN 06-24 01:55 → 2ND 06-24 03:35
PROVIDERS: ADMIT Internal Medicine; ATTEND Internal Medicine
PROC: 30233N1 Transfusion of Nonautologous Red Blood Cells into Peripheral Vein, Percutaneous Approach (ICD-10-PCS; principal; 2018-06-26)
DX: D62 Acute posthemorrhagic anemia (principal); D68.59 Other primary thrombophilia; R00.0 Tachycardia, unspecified; K21.9 Gastro-esophageal reflux disease without esophagitis; I10 Essential (primary) hypertension; E78.5 Hyperlipidemia, unspecified; K57.90 Diverticulosis of intestine, part unspecified, without perforation or abscess without bleeding; S70.12XA Contusion of left thigh, initial encounter; X58.XXXA Exposure to other specified factors, initial encounter; Y92.9 Unspecified place or not applicable; Z86.718 Personal history of other venous thrombosis and embolism; Z79.01 Long term (current) use of anticoagulants; Z85.038 Personal history of other malignant neoplasm of large intestine
CPT/HCPCS: 36415; 36430; 71045; 73521; 74177; 80048; 80076; 81003; 82274; 83690; 83735; 83880; 84484; 85014; 85018; 85025; 85610; 86850; 86900; 86901; 87086; 87088; 93005; 93970; 96361; 96372; 96374; 96375; 97163; 99285; G0378; J0696; J1650; J2405; J3010; J3475; J7030; P9016; Q9967

== ENCOUNTER 2018-09-07 14:49 | Emergency (ER) | payer OTHER, BC ==
[2018-09-07 16:38] LABS: Absolute Lymphocytes (CBC) 1.1 K/uL (0.7-4.9); Absolute Monocytes 0.5 K/uL (0.1-1.3); Absolute Neutrophil 9.3 K/uL (1.8-8.0); Basophils % 0.4 % (0-1.3); Eosinophils % 0.9 % (0-4.4); Hematocrit 39.1 % (36.0-45.0); Lymphocytes % 10.3 % (15.3-44.8); MPV 7.6 fL (7.6-11.3); Monocytes % 4.6 % (3.3-12.3); RBC Red Blood Cell Count 4.05 M/uL (3.86-4.86)
[2018-09-07 16:53] LABS: Albumin 3.4 g/dL (3.4-5.0); Bilirubin Total 0.3 mg/dL (0.2-1.0); Potassium 3.5 mmol/L (3.5-5.1); Protein, Total 6.6 g/dL (6.4-8.2)
[2018-09-07] MEDS ORDERED: SIMETHICONE 80 MG TAB PO SCH (17:00)
--- NOTE | 2018-09-07 17:56 | RAD REPORT ---
EXAM DESCRIPTION: CT - Abdomen Pelvis W Contrast - 09/07/2018 5:41 pm CLINICAL HISTORY: Abdominal pain, abdominal distention, history of colon cancer COMPARISON: CT study June 24, 2018 TECHNIQUE: Biphasic, helical CT imaging of the abdomen and pelvis was performed following 100 ml non -ionic IV contrast. No oral contrast administered. All CT scans are performed using dose optimization technique as appropriate and may include automated exposure control or mA/KV adjustment according to patient size. FINDINGS: No acute lung base finding. Cardiomegaly present without pericardial thickening or effusio n. The liver, spleen, and pancreas show no suspicious findings. No focal liver lesion to suspect metasta tic disease. No gallbladder or biliary tree acute finding. Gallstones can be occult. Symmetric renal function is seen with no hydronephrosis or suspicious renal mass. No pyelonephritis o r acute parenchymal process. No bladder abnormalities. Few small renal cysts are present. No adrenal abnormalities. No gastric dilatation or gastric wall thickening seen. Stomach assessment is limited due to the absen ce of intraluminal content. Right-side colon surgical changes are noted. At the anastomotic site the bowel is dilated. There is a large amount of stool in this region. This dilatation pattern is not new . Patient has a large wide neck ventral hernia containing multiple loops of large and small bowel. He rnia has not enlarged since the prior study. The herniated bowel loops show no wall thickening or iris ma. No free air, free fluid, pneumatosis or focal inflammatory stranding. No ascites, omental thickening or other finding to indicate recurrent carcinoma. Patient has prominent bony degenerative changes. No pathologic bone process. Dense arterial tree calc ifications are present. An IVC filter is in place. The large hematoma in the posterior thigh seen in June has resolved. No new or recurrent soft tis colt mass or hematoma. IMPRESSION: No bowel obstruction, free air or surgically emergent finding. Patient has a large ventral hernia containing multiple loops of large and small bowel. The herniated loops show no acute component in the hernia is not clearly different from the June 2018 study. Dilation of the right-side colon at the surgical anastomotic site. This is a stable presentation. No ascites, omental thickening or other findings to suspect carcinomatosis.
--- NOTE | 2018-09-07 18:21 | ER ---
Nurse's Notes [facility] Name: Kirsten Mayfield Age: 83 yrs Sex: Female : 1935 Arrival Date: 09/07/2018 Time: 14:51 Bed 5 Private MD: Sourav Gonzalez C Diagnosis: Abdominal pain Presentation: 09/07 14:55 Presenting complaint: Patient states: For the last couple hours I have felt like I la1 really need to get some gas out but I cant and the pain wont go away, daughter reports increased abdominal distension. Pt denies vomiting, diarrhea, had normal BM this morning. Transition of care: patient was not received from another setting of care. Onset of symptoms was September 07, 2018. Risk Assessment: Do you want to hurt yourself or someone else? Patient reports no desire to harm self or others. Initial Sepsis Screen: Does the patient meet any 2 criteria? No. Patient's initial sepsis screen is negative. Does the patient have a suspected source of infection? No. Patient's initial sepsis screen is negative. Care prior to arrival: None. 14:55 Method Of Arrival: Ambulatory la1 14:55 Acuity: STEFFEN 3 la1 Triage Assessment: 15:00 General: Behavior is calm, cooperative, appropriate for age. ca1 Historical: - Allergies: 14:55 No Known Allergies; la1 - PMHx: 14:55 CHF; colon cancer; Dementia; DVT; GERD; Hernia; High Cholesterol; Hypertension; la1 - Immunization history:: Adult Immunizations up to date. - Social history:: Smoking status: Patient/guardian denies using tobacco. - Ebola Screening: : No symptoms or risks identified at this time. Screenin:00 Abuse screen: Denies threats or abuse. Denies injuries from another. Nutritional ca1 screening: No deficits noted. Tuberculosis screening: No symptoms or risk factors identified. Fall Risk None identified. Assessment: 15:00 General: Appears in no apparent distress. uncomfortable. Pain: Complains of pain in ca1 abdomen Pain does not radiate. Pain currently is 8 out of 10 on a pain scale. Neuro: Level of Consciousness is awake, alert, obeys commands, Oriented to person, place, time, situation. Cardiovascular: Heart tones S1 S2 present Capillary refill < 3 seconds. Respiratory: Airway is patent Respiratory effort is even, unlabored, Breath sounds are clear bilaterally. GI: Abdomen is round distended, Bowel sounds present X 4 quads. Abd is soft and non tender. : No signs and/or symptoms were reported regarding the genitourinary system. EENT: No signs and/or symptoms were reported regarding the EENT system. Derm: Skin is intact, Skin is pink, warm \T\ dry. Musculoskeletal: Circulation, motion, and sensation intact. 16:02 Reassessment: Patient appears in no apparent distress at this time. Patient and/or ca1 family updated on plan of care and expected duration. Pain level reassessed. Patient is alert, oriented x 3, equal unlabored respirations, skin warm/dry/pink. 16:52 Reassessment: Patient appears in no apparent distress at this time. Patient and/or ca1 family updated on plan of care and expected duration. Pain level reassessed. Patient is alert, oriented x 3, equal unlabored respirations, skin warm/dry/pink. for CT scan. Patient states feeling better. 17:42 Reassessment: Patient appears in no apparent distress at this time. Patient is alert, ca1 oriented x 3, equal unlabored respirations, skin warm/dry/pink. Pt from CT scan. Vital Signs: 14:59 BP 163 / 65; Pulse 60; Resp 16; Temp 97.8(TE); Pulse Ox 98% on R/A; Weight 56.7 kg; la1 15:45 BP 141 / 52; Pulse 55; Resp 18; Pulse Ox 95% on R/A; ca1 16:47 BP 131 / 56; Pulse 56; Resp 16; Pulse Ox 95% on R/A; ca1 17:45 BP 143 / 53; Pulse 59; Resp 19; Pulse Ox 95% on R/A; ca1 ED Course: 14:51 Patient arrived in ED. mr 14:51 Sourav Gonzalez MD is Private Physician. mr 14:58 Triage completed. la1 14:58 Arm band placed on right wrist. la1 15:00 Jorge Wayne MD is Attending Physician. ps1 15:00 Patient has correct armband on for positive identification. Placed in gown. Bed in low ca1 position. Call light in reach. Side rails up X2. shelter monitor on. Pulse ox on. NIBP on. Warm blanket given. 15:04 Marilu Love RN is Primary Nurse. ca1 15:30 Missed attempt(s): 20 gauge in right antecubital area. ca1 15:49 Radiology exam delayed due to lab results not completed at this time. (BUN/Creatinine). mw3 16:07 Initial lab(s) drawn, by me, sent to lab. Inserted saline lock: 22 gauge in right jb1 antecubital area, using aseptic technique. Blood collected. 17:42 CT Abd/Pelvis - W/Contrast In Process Unspecified. EDMS 17:42 CT completed. Patient tolerated procedure well. Patient moved back from CT. mw3 18:19 Sourav Gonzalez MD is Referral Physician. ps1 18:36 No provider procedures requiring assistance completed. IV discontinued, intact, ca1 bleeding controlled, No redness/swelling at site. Pressure dressing applied. Administered Medications: 16:30 Drug: Simethicone 80 mg Route: PO; ca1 18:09 Follow up: Response: No adverse reaction; Marked relief of symptoms ca1 Outcome: 18:20 Discharge ordered by MD. ps1 18:36 Discharged to home via wheelchair, with family. ca1 18:36 Condition: stable 18:36 Discharge instructions given to patient, family, Instructed on discharge instructions, follow up and referral plans. medication usage, Demonstrated understanding of instructions, follow-up care, medications, Prescriptions given X 1. 18:40 Patient left the ED. ca1 Signatures: Dispatcher [employer] EDMS Molina Sesay jb1 Vaibhav Breanna mr Sushil Solorio, RN RN la1 Jorge Wayne MD MD ps1 So Brito mw3 Marilu Love RN RN ca1 Corrections: (The following items were deleted from the chart) 16:56 15:45 BP 131 / 56; Pulse 56bpm; Resp 16bpm; Pulse Ox 95% RA; ca1 ca1
--- NOTE | 2018-09-07 18:21 | EDPHYS ---
Physician Documentation [facility] Name: Kirsten Mayfield Age: 83 yrs Sex: Female : 1935 Arrival Date: 09/07/2018 Time: 14:51 Bed 5 Private MD: Sourav Gonzalez C ED Physician Jorge Wayne HPI: 09/07 16:07 This 83 yrs old Female presents to ER via Ambulatory with complaints of ps1 Abdominal Pain. 16:07 patient has a history of colon CA now presenting with abdominal pain. She has a large ps1 reducible ventral hernia and has felt a lot of gas. She had a episode of flatus just prior to my evaluation and states that it made her feel better. Pain is now described as a dull ache. Pain rated as mild to moderate which is an improvement from previous. . Historical: - Allergies: 14:55 No Known Allergies; la1 - PMHx: 14:55 CHF; colon cancer; Dementia; DVT; GERD; Hernia; High Cholesterol; Hypertension; la1 - Immunization history:: Adult Immunizations up to date. - Social history:: Smoking status: Patient/guardian denies using tobacco. - Ebola Screening: : No symptoms or risks identified at this time. ROS: 16:07 Constitutional: Negative for fever, chills, and weight loss, Eyes: Negative for injury, ps1 pain, redness, and discharge, ENT: Negative for injury, pain, and discharge, Cardiovascular: Negative for chest pain, palpitations, and edema, Respiratory: Negative for shortness of breath, cough, wheezing, and pleuritic chest pain, MS/Extremity: Negative for injury and deformity, Skin: Negative for injury, rash, and discoloration, Neuro: Negative for headache, weakness, numbness, tingling, and seizure. 16:07 Abdomen/GI: Positive for abdominal pain, flatulence. Exam: 16:07 Constitutional: This is a well developed, well nourished patient who is awake, alert, ps1 and in no acute distress. Head/Face: Normocephalic, atraumatic. Chest/axilla: Normal chest wall appearance and motion. Nontender with no deformity. No lesions are appreciated. Cardiovascular: Regular rate and rhythm. No gallops, murmurs, or rubs. Normal PMI, no JVD. No pulse deficits. Respiratory: Lungs have equal breath sounds bilaterally, clear to auscultation and percussion. No rales, rhonchi or wheezes noted. No increased work of breathing, no retractions or nasal flaring. Skin: Warm, dry with normal turgor. Normal color with no rashes, no lesions, and no evidence of cellulitis. MS/ Extremity: Pulses equal, no cyanosis. Neurovascular intact. Full, normal range of motion. Neuro: Awake and alert, GCS 15, oriented to person, place, time, and situation. Cranial nerves II-XII grossly intact. Sensory grossly intact. 16:07 Abdomen/GI: Inspection: abdomen appears normal, scar(s), are noted in the right upper quadrant and right lower quadrant, large ventral hernia reducible, Bowel sounds: active, Palpation: abdomen is soft and non-tender. Vital Signs: 14:59 BP 163 / 65; Pulse 60; Resp 16; Temp 97.8(TE); Pulse Ox 98% on R/A; Weight 56.7 kg; la1 15:45 BP 141 / 52; Pulse 55; Resp 18; Pulse Ox 95% on R/A; ca1 16:47 BP 131 / 56; Pulse 56; Resp 16; Pulse Ox 95% on R/A; ca1 17:45 BP 143 / 53; Pulse 59; Resp 19; Pulse Ox 95% on R/A; ca1 MDM: 15:38 Patient medically screened. ps1 09/07 15:44 Order name: CBC with Diff ps1 09/07 15:44 Order name: Creatinine for Radiology; Complete Time: 16:57 ps1 09/07 15:44 Order name: Lipase; Complete Time: 16:57 ps1 09/07 15:44 Order name: CMP; Complete Time: 16:57 ps1 09/07 15:44 Order name: CT Abd/Pelvis - W/Contrast; Complete Time: 18:13 ps1 09/07 15:45 Order name: CBC with Automated Diff; Complete Time: 16:57 EDMS 09/07 15:44 Order name: IV Saline Lock; Complete Time: 16:07 ps1 09/07 15:44 Order name: Labs collected and sent; Complete Time: 16:07 ps1 Administered Medications: 16:30 Drug: Simethicone 80 mg Route: PO; ca1 18:09 Follow up: Response: No adverse reaction; Marked relief of symptoms ca1 Disposition: 09/07/18 18:20 Discharged to Home. Impression: Abdominal pain. - Condition is Stable. - Discharge Instructions: Abdominal Pain, Adult. - Prescriptions for simethicone - take 80 milligram by ORAL route once daily for 30 days; 30 tablet. - Medication Reconciliation Form, Thank You Letter, Antibiotic Education, Prescription Opioid Use form. - Follow up: Sourav Gonzalez MD; When: As needed; Reason: Further diagnostic work-up, Recheck today's complaints, Continuance of care, Re-evaluation by your physician. Follow up: Emergency Department; When: As needed; Reason: Worsening of condition. - Problem is new. - Symptoms have improved. Signatures: Dispatcher [employer] EDMS Sushil Solorio RN RN la1 Jorge Wayne MD MD ps1 Marilu Love RN RN ca1 Corrections: (The following items were deleted from the chart) 18:20 18:20 09/07/2018 18:20 Discharged to Home. Impression: Abdominal pain; Trapped gas. ps1 Condition is Stable. Forms are Medication Reconciliation Form, Thank You Letter, Antibiotic Education, Prescription Opioid Use. Follow up: A Lisa; When: As needed; Reason: Further diagnostic work-up, Recheck today's complaints, Continuance of care, Re-evaluation by your physician. Follow up: Emergency Department; When: As needed; Reason: Worsening of condition. Problem is new. Symptoms have improved. ps1 18:40 18:20 09/07/2018 18:20 Discharged to Home. Impression: Abdominal pain. Condition is ca1 Stable. Forms are Medication Reconciliation Form, Thank You Letter, Antibiotic Education, Prescription Opioid Use. Follow up: A Lisa; When: As needed; Reason: Further diagnostic work-up, Recheck today's complaints, Continuance of care, Re-evaluation by your physician. Follow up: Emergency Department; When: As needed; Reason: Worsening of condition. Problem is new. Symptoms have improved. ps1
[2018-09-07 18:55] VITALS: TEMP 97.8
[2018-09-07 18:56] VITALS: O2SAT 95
[2018-09-07 18:59] VITALS: BP 143/53
== END 2018-09-07 18:40 | disposition home or self-care (01) ==
LOC: ER 14:49
DX: R10.9 Unspecified abdominal pain (principal); I10 Essential (primary) hypertension; Z85.038 Personal history of other malignant neoplasm of large intestine
CPT/HCPCS: 36415; 74177; 80053; 83690; 85025; 99285; Q9967

== ENCOUNTER 2019-02-02 09:31 | Emergency (ER) | payer OTHER, BC ==
[2019-02-02 10:54] LABS: Absolute Lymphocytes (CBC) 1.2 K/uL (0.7-4.9); Basophils % 0.4 % (0-1.3); Eosinophils % 0.9 % (0-4.4); Lymphocytes % 15.9 % (15.3-44.8); MPV 8.3 fL (7.6-11.3); Monocytes % 8.4 % (3.3-12.3)
[2019-02-02 11:01] LABS: Potassium 3.8 mmol/L (3.5-5.1)
--- NOTE | 2019-02-02 11:19 | RAD REPORT ---
EXAM DESCRIPTION: RAD - Knee Left 3 View - 02/02/2019 10:23 am CLINICAL HISTORY: Pain;Swelling COMPARISON: No comparisons FINDINGS: Prominent arthritic changes are present throughout the knee. Chondrocalcinosis is seen. No acute fracture or dislocation. No joint effusion evident.
--- NOTE | 2019-02-02 11:21 | RAD REPORT ---
EXAM DESCRIPTION: RAD - Wrist Right 3 View - 02/02/2019 10:23 am CLINICAL HISTORY: Pain;Swelling Pain COMPARISON: No comparisons FINDINGS: Diffuse osteopenia is seen. No acute fracture demonstrated. Soft tissue swelling is presen t about the wrist. Mild chondrocalcinosis is evident with osteoarthritic changes involving the radio carpal joint. Underlying inflammatory arthropathy such as CPPD is possible.
--- NOTE | 2019-02-02 11:24 | RAD REPORT ---
EXAM DESCRIPTION: RAD - Hand Right 3 View - 02/02/2019 10:23 am CLINICAL HISTORY: Pain;Swelling COMPARISON: No comparisons FINDINGS: Soft tissue swelling is seen with areas of chondrocalcinosis. Osteoarthritic changes are p resent involving the radiocarpal joint, first carpometacarpal joint and DIP/PIP joints of the fingers . No acute fracture or dislocation demonstrated. Underlying inflammatory arthropathy is favored.
--- NOTE | 2019-02-02 11:46 | ER ---
Nurse's Notes [facility] Name: Kirsten Mayfield Age: 83 yrs Sex: Female : 1935 Arrival Date: 02/02/2019 Time: 09:33 Bed 14 Private MD: Sourav Gonzalez C Diagnosis: Inflammatory arthropathy Presentation: 02/02 09:32 Presenting complaint: Patient states: Redness and swelling noted to R wrist x 2-3 days. ss Transition of care: patient was not received from another setting of care. Onset of symptoms was January 30, 2019. Risk Assessment: Do you want to hurt yourself or someone else? Patient reports no desire to harm self or others. Initial Sepsis Screen: Does the patient meet any 2 criteria? No. Patient's initial sepsis screen is negative. Does the patient have a suspected source of infection? No. Patient's initial sepsis screen is negative. Care prior to arrival: None. 09:32 Method Of Arrival: Ambulatory ss 09:32 Acuity: STEFFEN 3 ss Triage Assessment: 09:40 General: Appears in no apparent distress. comfortable, Behavior is calm, cooperative, rb1 Denies fever. Pain: Complains of pain in right wrist Pain radiates to right arm Pain currently is 8 out of 10 on a pain scale. Neuro: Level of Consciousness is awake, alert, obeys commands, Oriented to person, place, time, situation. Cardiovascular: Capillary refill < 3 seconds is brisk in bilateral fingers. Respiratory: Airway is patent Respiratory effort is even, unlabored, Respiratory pattern is regular, symmetrical. GI: Reports diarrhea. : No signs and/or symptoms were reported regarding the genitourinary system. Derm: Skin is pink, warm \T\ dry. Musculoskeletal: Swelling present in right wrist redness noted to the right wrist. Pt. reports hitting her right wrist 2 weeks, denies falling. Historical: - Allergies: 09:40 No Known Allergies; rb1 - Home Meds: 09:40 atorvastatin 20 mg Oral tab 1 tab nightly [Active]; Iron 27 mg Sat \T\ Sun [Active]; rb1 metoprolol tartrate 50 mg Oral tab 1 tab 2 times per day [Active]; multivitamin Oral tab daily [Active]; Align oral oral daily [Active]; omeprazole 40 mg Oral cpDR 1 cap once daily [Active]; sertraline 50 mg Oral tab 1 tab once daily [Active]; memantine HCl (bulk) 100 % miscellaneous powd twice a day [Active]; sertraline 100 mg oral tab 1 tab once daily [Active]; rivastigmine tartrate 1.5 mg oral cap 1 cap 2 times per day [Active]; Xyzal 5 mg oral tab 1 tab once daily [Active]; - PMHx: 09:40 CHF; colon cancer; Dementia; DVT; GERD; Hernia; High Cholesterol; Hypertension; rb1 09:40 Hard of hearing; rb1 - PSHx: 09:40 colon resection; rb1 - Immunization history:: Adult Immunizations up to date. - Social history:: Smoking status: Patient/guardian denies using tobacco. - Family history:: not pertinent. - Ebola Screening: : Patient negative for fever greater than or equal to 101.5 degrees Fahrenheit, and additional compatible Ebola Virus Disease symptoms. - Hospitalizations: : No recent hospitalization is reported. Screenin:40 Abuse screen: Denies threats or abuse. Nutritional screening: No deficits noted. rb1 Tuberculosis screening: No symptoms or risk factors identified. Fall Risk No fall in past 12 months (0 pts). Secondary diagnosis (15 points) dementia, IV access (20 points). Ambulatory Aid- None/Bed Rest/Nurse Assist (0 pts). Gait- Normal/Bed Rest/Wheelchair (0 pts) Mental Status- Overestimates/Forgets Limitations (15 pts.). Total De [place] Fall Scale indicates High Risk Score (45 or more points). Fall prevention measures have been instituted. Side Rails Up X 2 Placed Close to Nursing Station 1:1 Attendant Assigned Frequent Obs/Assessments Occuring Family Present and informed to notify staff if the need to leave the bedside As available patient and family educated on Fall Prevention Program and Strategies. Assessment: 09:40 General: See triage assessment. rb1 09:40 EENT: Reports Wears hearing aids in bilateral ears, pt. is not currently wearing them, rb1 she left them at home.. 10:40 Reassessment: Patient appears in no apparent distress at this time. No changes from rb1 previously documented assessment. 11:40 Reassessment: Patient appears in no apparent distress at this time. Patient and/or rb1 family updated on plan of care and expected duration. Pain level reassessed. Patient is alert, oriented x 3, equal unlabored respirations, skin warm/dry/pink. Vital Signs: 09:40 BP 169 / 97; Pulse 67; Resp 17; Temp 98.7(O); Pulse Ox 95% on R/A; Weight 56.7 kg (R); rb1 Height 5 ft. 3 in. (160.02 cm) (R); Pain 8/10; 10:40 BP 161 / 67; Pulse 56; Resp 17; Temp 98.6(O); Pulse Ox 96% on R/A; Pain 8/10; rb1 11:40 BP 142 / 62; Pulse 53; Resp 16; Temp 98.4(O); Pulse Ox 95% on R/A; Pain 8/10; rb1 09:40 Body Mass Index 22.14 (56.70 kg, 160.02 cm) rb1 ED Course: 09:33 Patient arrived in ED. as 09:34 Sourav Gonzalez MD is Private Physician. as 09:40 Mynor Jade MD is Attending Physician. rn 09:40 Patient has correct armband on for positive identification. Bed in low position. Call rb1 light in reach. Side rails up X 1. Pulse ox on. NIBP on. Warm blanket given. 09:40 Arm band placed on right wrist. rb1 09:49 Yulisa Gonzales, RN is Primary Nurse. rb1 10:10 Triage completed. ss 10:23 XRAY Wrist RIGHT 3 view In Process Unspecified. EDMS 10:23 XRAY Hand RIGHT 3 View In Process Unspecified. EDMS 10:24 XRAY Knee LEFT 3 view In Process Unspecified. EDMS 11:45 Sourav Gonzalez MD is Referral Physician. rn 12:03 No provider procedures requiring assistance completed. IV discontinued, intact, rb1 bleeding controlled, No redness/swelling at site. Pressure dressing applied. Administered Medications: 12:01 Drug: Tylenol #3 (300 mg-30 mg) 1 tablet Route: PO; rb1 12:03 Follow up: Response: Medication administered at discharge. rb1 12:01 Drug: Motrin 600 mg Route: PO; rb1 12:03 Follow up: Response: Medication administered at discharge. rb1 Outcome: 11:46 Discharge ordered by MD. rn 12:03 Discharged to home ambulatory, with family. rb1 12:03 Condition: stable 12:03 Discharge instructions given to patient, Instructed on discharge instructions, follow up and referral plans. medication usage, Demonstrated understanding of instructions, follow-up care, medications, Prescriptions given X 2. 12:04 Patient left the ED. rb1 Signatures: Dispatcher [employer] Hazel Yeh Roman, MD MD rn Smirch, Shelby, RN RN ss Yulisa Gonzales RN RN rb1
--- NOTE | 2019-02-02 11:47 | EDPHYS ---
Physician Documentation [facility] Name: Kirstne Mayfield Age: 83 yrs Sex: Female : 1935 Arrival Date: 02/02/2019 Time: 09:33 Bed 14 Private MD: Sourav Gonzalez C ED Physician Mynor Jade HPI: 02/02 10:13 This 83 yrs old Female presents to ER via Ambulatory with complaints of Hand rn Swelling. 10:13 The patient or guardian reports pain, swelling. The complaints affect the right hand rn diffusely. Onset: The symptoms/episode began/occurred at an unknown time. Modifying factors: The symptoms are alleviated by nothing, the symptoms are aggravated by movement. Severity of symptoms: At their worst the symptoms were mild, in the emergency department the symptoms are unchanged. The patient has experienced a previous episode. Reports unknown onset, has dementia, daughter noticed swelling and redness yesterday, but patient begna complaining of pain to son 1 week ago. States hit wrist on wall but not sure. Reports pain with movement. No fever. Has had cellulitis before and thinks may be the same. Otherwise feels ok. . Historical: - Allergies: 09:40 No Known Allergies; rb1 - Home Meds: 09:40 atorvastatin 20 mg Oral tab 1 tab nightly [Active]; Iron 27 mg Sat \T\ Sun [Active]; rb1 metoprolol tartrate 50 mg Oral tab 1 tab 2 times per day [Active]; multivitamin Oral tab daily [Active]; Align oral oral daily [Active]; omeprazole 40 mg Oral cpDR 1 cap once daily [Active]; sertraline 50 mg Oral tab 1 tab once daily [Active]; memantine HCl (bulk) 100 % miscellaneous powd twice a day [Active]; sertraline 100 mg oral tab 1 tab once daily [Active]; rivastigmine tartrate 1.5 mg oral cap 1 cap 2 times per day [Active]; Xyzal 5 mg oral tab 1 tab once daily [Active]; - PMHx: 09:40 CHF; colon cancer; Dementia; DVT; GERD; Hernia; High Cholesterol; Hypertension; rb1 09:40 Hard of hearing; rb1 - PSHx: 09:40 colon resection; rb1 - Immunization history:: Adult Immunizations up to date. - Social history:: Smoking status: Patient/guardian denies using tobacco. - Family history:: not pertinent. - Ebola Screening: : Patient negative for fever greater than or equal to 101.5 degrees Fahrenheit, and additional compatible Ebola Virus Disease symptoms. - Hospitalizations: : No recent hospitalization is reported. ROS: 10:13 Constitutional: Negative for fever, chills, and weight loss, Eyes: Negative for injury, rn pain, redness, and discharge, Cardiovascular: Negative for chest pain, palpitations, and edema, Respiratory: Negative for shortness of breath, cough, wheezing, and pleuritic chest pain, Abdomen/GI: Negative for abdominal pain, nausea, vomiting, diarrhea, and constipation, MS/Extremity: + right wrist and hand pain Skin: + redness and warmth right wrist/hand Neuro: Negative for headache, weakness, numbness, tingling, and seizure. Exam: 10:13 Constitutional: This is a well developed, well nourished patient who is awake, alert, rn and in no acute distress. Head/Face: Normocephalic, atraumatic. Eyes: Pupils equal round and reactive to light, extra-ocular motions intact. Lids and lashes normal. Conjunctiva and sclera are non-icteric and not injected. Cornea within normal limits. Periorbital areas with no swelling, redness, or edema. ENT: MMM Neck: Trachea midline, no thyromegaly or masses palpated, and no cervical lymphadenopathy. Supple, full range of motion without nuchal rigidity, or vertebral point tenderness. No Meningismus. Abdomen/GI: soft, non-tender MS/ Extremity: Pulses equal, no cyanosis. Neurovascular intact. + mild swelling right distal forearm/wrist/proximal hand with erythema and some warmth, no laceration, no bullae, no fluctuance. No bony tenderness. mild swelling left knee with FROM and no sign of trauma, no erythema or warmth of knee. Neuro: Awake and alert, GCS 15, oriented to person, place, and situation. Cranial nerves II-XII grossly intact. Motor strength 5/5 in all extremities. Sensory grossly intact. Cerebellar exam normal. Vital Signs: 09:40 BP 169 / 97; Pulse 67; Resp 17; Temp 98.7(O); Pulse Ox 95% on R/A; Weight 56.7 kg (R); rb1 Height 5 ft. 3 in. (160.02 cm) (R); Pain 8/10; 10:40 BP 161 / 67; Pulse 56; Resp 17; Temp 98.6(O); Pulse Ox 96% on R/A; Pain 8/10; rb1 11:40 BP 142 / 62; Pulse 53; Resp 16; Temp 98.4(O); Pulse Ox 95% on R/A; Pain 8/10; rb1 09:40 Body Mass Index 22.14 (56.70 kg, 160.02 cm) rb1 MDM: 09:40 Patient medically screened. rn 11:42 Differential diagnosis: tendonitis, inflammatory arthropathy, arthritis. Data reviewed: rn vital signs, nurses notes, lab test result(s), radiologic studies, plain films, and as a result, I will discharge patient. Counseling: I had a detailed discussion with the patient and/or guardian regarding: the historical points, exam findings, and any diagnostic results supporting the discharge/admit diagnosis, lab results, radiology results, the need for outpatient follow up, to return to the emergency department if symptoms worsen or persist or if there are any questions or concerns that arise at home. Special discussion: I discussed with the patient/guardian in detail that at this point there is no indication for admission to the hospital. It is understood, however, that if the symptoms persist or worsen the patient needs to return immediately for re-evaluation. Based on the history and exam findings, there is no indication for further emergent testing or inpatient evaluation. I discussed with the patient/guardian the need to see the primary care provider for further evaluation of the symptoms. ED course: Consulted with Dr. Gonzalez, afebrile, normal WBC and procalcitonin, requests to send off rheumatoid factor, and ok to dc home with abx to cover possible cellulitis. Speaking with patient, she states thinks has been told in distant past had inflammatory arthritis like gout and pseudogout. . 02/02 09:50 Order name: CBC with Diff; Complete Time: 11:00 rn 02/02 09:50 Order name: Basic Metabolic Panel; Complete Time: 11:18 rn 02/02 09:48 Order name: XRAY Wrist RIGHT 3 view; Complete Time: 11:28 rn 02/02 09:50 Order name: Procalcitonin; Complete Time: 11:28 rn 02/02 09:50 Order name: Blood Culture Adult (2) rn 02/02 09:48 Order name: XRAY Hand RIGHT 3 View; Complete Time: 11:28 rn 02/02 09:48 Order name: XRAY Knee LEFT 3 view; Complete Time: 11:28 rn 02/02 09:50 Order name: IV Start; Complete Time: 10:20 rn 02/02 11:40 Order name: Splint - Wrist: velcro wrist brace; Complete Time: 11:49 rn Administered Medications: 12:01 Drug: Tylenol #3 (300 mg-30 mg) 1 tablet Route: PO; rb1 12:03 Follow up: Response: Medication administered at discharge. rb1 12:01 Drug: Motrin 600 mg Route: PO; rb1 12:03 Follow up: Response: Medication administered at discharge. rb1 Disposition: 02/02/19 11:46 Discharged to Home. Impression: Inflammatory arthropathy. - Condition is Stable. - Discharge Instructions: Arthritis, Reactive Arthritis. - Prescriptions for Tylenol- Codeine #3 300-30 mg Oral Tablet - take 1 tablet by ORAL route every 6 hours As needed; 20 tablet. Bactrim DS 800- 160 mg Oral Tablet - take 1 tablet by ORAL route every 12 hours for 10 days; 20 tablet. - Medication Reconciliation Form, Thank You Letter, Antibiotic Education, Prescription Opioid Use form. - Follow up: Sourav Gonzalez MD; When: 2 - 3 days; Reason: Recheck today's complaints, Re-evaluation by your physician. - Problem is an ongoing problem. - Symptoms have improved. Signatures: Dispatcher [employer] EDMynor Cintron MD MD rn Barber, Rebecca, RN RN rb1 Corrections: (The following items were deleted from the chart) 12:04 11:46 02/02/2019 11:46 Discharged to Home. Impression: Inflammatory arthropathy. rb1 Condition is Stable. Forms are Medication Reconciliation Form, Thank You Letter, Antibiotic Education, Prescription Opioid Use. Follow up: Sourav Gonzalez; When: 2 - 3 days; Reason: Recheck today's complaints, Re-evaluation by your physician. Problem is an ongoing problem. Symptoms have improved. rn
[2019-02-02] MEDS ORDERED: IBUPROFEN 400 MG TAB ONE (12:04)
[2019-02-02] MEDS ORDERED: IBUPROFEN 200 MG TAB PO ONE (12:04)
[2019-02-02] MEDS ORDERED: CODEINE 30MG/APAP 300MG TAB ONE (12:04)
[2019-02-02 13:13] LABS: Rheumatoid Factor NEG (NEG)
== END 2019-02-02 12:04 | disposition home or self-care (01) ==
LOC: ER 09:31
DX: M12.841 Other specific arthropathies, not elsewhere classified, right hand (principal); F03.90 Unspecified dementia, unspecified severity, without behavioral disturbance, psychotic disturbance, mood disturbance, and anxiety; I11.0 Hypertensive heart disease with heart failure; I50.9 Heart failure, unspecified; C18.9 Malignant neoplasm of colon, unspecified; E78.00 Pure hypercholesterolemia, unspecified
CPT/HCPCS: 36415; 80048; 84145; 85025; 86430; 87040; 99284

== ENCOUNTER 2020-09-24 06:36 | Emergency (ER) | payer OTHER, BC ==
[2020-09-24 08:15] LABS: Absolute Lymphocytes (CBC) 1.6 K/uL (0.7-4.9); Basophils % 0.7 % (0-1.3); Hematocrit 39.2 % (36.0-45.0); Lymphocytes % 25.6 % (15.3-44.8); MPV 7.6 fL (7.6-11.3)
--- NOTE | 2020-09-24 08:19 | RAD REPORT ---
EXAM DESCRIPTION: CT - Head Brain Wo Cont - 09/24/2020 8:12 am CLINICAL HISTORY: AMS, hallucinations;Confused Headache, drowsiness COMPARISON: No comparisons TECHNIQUE: All CT scans are performed using dose optimization technique as appropriate and may inclu de automated exposure control or mA/KV adjustment according to patient size. FINDINGS: No intracranial hemorrhage, hydrocephalus or extra-axial fluid collection.Mild generalized brain atrophy is present with mild periventricular and deep white matter chronic microvascular ische theo changes.No areas of brain edema or evidence of midline shift. The paranasal sinuses and mastoids are clear. The calvarium is intact. IMPRESSION: No acute intracranial abnormality.
[2020-09-24 08:30] LABS: Potassium 4.1 mmol/L (3.5-5.1)
--- NOTE | 2020-09-24 09:52 | ER ---
Nurse's Notes [facility] Name: Kirsten Mayfield Age: 85 yrs Sex: Female : 1935 Arrival Date: 09/24/2020 Time: 06:37 Bed 14 Private MD: Diagnosis: Altered mental status, unspecified;Dementia in other diseases classified elsewhere Presentation: 09/24 07:23 Chief complaint: Pt's daughter states "she started hallucinating last night and I think aa5 she has a UTI or maybe she is dehydrated; she started saying that my sister was here in [place] and saying that we were hiding it from her and she went outside to the cold last night a few times looking for my sister". 07:23 Acuity: STEFFEN 2 aa5 07:23 Coronavirus screen: At this time, the client does not indicate any symptoms associated aa5 with coronavirus-19. Ebola Screen: Patient negative for fever greater than or equal to 101.5 degrees Fahrenheit, and additional compatible Ebola Virus Disease symptoms. Initial Sepsis Screen: Does the patient meet any 2 criteria? No. Patient's initial sepsis screen is negative. Does the patient have a suspected source of infection? Yes:. Risk Assessment: Do you want to hurt yourself or someone else? Patient reports no desire to harm self or others. Onset of symptoms was September 2020. 07:23 Method Of Arrival: Wheelchair aa5 Triage Assessment: 07:30 General: Appears in no apparent distress. comfortable, slender, Behavior is bp cooperative, appropriate for age, anxious. Pain: Denies pain. EENT: No deficits noted. Neuro: Level of Consciousness is awake, alert, confused, Oriented to person, place. Cardiovascular: No deficits noted. Respiratory: No deficits noted. GI: No signs and/or symptoms were reported involving the gastrointestinal system. : No signs and/or symptoms were reported regarding the genitourinary system. Derm: No deficits noted. Musculoskeletal: No deficits noted. Historical: - Allergies: 07:25 No Known Allergies; aa5 - Home Meds: 07:48 Align probiotic [Active]; Iron CR Oral [Active]; omeprazole 40 mg Oral cpDR 1 cap once aa5 daily [Active]; sertraline 100 mg Oral tab 1 tab once daily [Active]; metoprolol tartrate 50 mg Oral tab 2 times per day [Active]; memantine 10 mg oral tab 1 tab 2 times per day [Active]; atorvastatin 20 mg Oral tab 1 tab nightly [Active]; rivastigmine tartrate 3 mg oral cap 2 times per day [Active]; amlodipine 5 mg tab 1 tab once daily [Active]; losartan 50 mg oral tab once daily [Active]; Xyzal 5 mg Oral tab 1 tab once daily [Active]; meloxicam 7.5 mg oral tab as needed for knee/leg pain [Active]; - PMHx: 07:25 CHF; colon cancer; Dementia; DVT; GERD; HARD OF HEARING; Hernia; High Cholesterol; aa5 Hypertension; - PSHx: 07:25 colon resection; Skin Cancer removed; Port-a-cath placed and removed; Bird's Nest aa5 Filter; - Immunization history:: Adult Immunizations up to date. - Social history:: Smoking status: Patient denies any tobacco usage or history of. Screenin:30 Abuse screen: Denies threats or abuse. Denies injuries from another. Nutritional bp screening: No deficits noted. Tuberculosis screening: No symptoms or risk factors identified. Fall Risk No fall in past 12 months (0 pts). Secondary diagnosis (15 points) dementia, Mental Status- Overestimates/Forgets Limitations (15 pts.). Total [place] Fall Scale indicates Low Risk Score (25-44 pts). Fall prevention measures have been instituted. Side Rails Up X 2 Placed close to Nursing Station Frequent Obs/Assesments occuring Family Present and informed to notify staff if they need to leave bedside As available Patient and Family Educated on Fall Prevention Program and strategies. Assessment: 07:30 General: SEE TRIAGE NOTE. bp 08:32 Reassessment: Patient appears in no apparent distress at this time. No changes from bp previously documented assessment. Patient and/or family updated on plan of care and expected duration. Pain level reassessed. Patient is alert, oriented x 3, equal unlabored respirations, skin warm/dry/pink. PT RETURNED FROM CT. 09:44 Reassessment: Patient appears in no apparent distress at this time. No changes from bp previously documented assessment. Patient and/or family updated on plan of care and expected duration. Pain level reassessed. Patient is alert, oriented x 3, equal unlabored respirations, skin warm/dry/pink. ALL CURRENT ORDERS COMPLETED. 10:19 Reassessment: PT D/C HOME VIA W/C WITH FAMILY, DX WITH DEMENTIA. bp Vital Signs: 07:23 BP 181 / 91; Pulse 64; Resp 16 S; Temp 98.2(O); Pulse Ox 94% on R/A; aa5 08:05 BP 187 / 74; Pulse 57; Resp 16; Pulse Ox 95% ; bp 08:31 BP 151 / 75; Pulse 64; Resp 16; Pulse Ox 95% ; bp 09:30 BP 145 / 71; Pulse 61; Resp 17; Pulse Ox 93% ; bp 10:19 BP 141 / 70; Pulse 59; Resp 17; Temp 98.5; Pulse Ox 96% ; bp ED Course: 06:37 Patient arrived in ED. cl3 07:23 Arm band placed on. aa5 07:23 Patient placed in an exam room, on a stretcher. aa5 07:24 Neil Donovan MD is Attending Physician. kdr 07:24 Jh Neely, RN is Primary Nurse. bp 07:30 Patient has correct armband on for positive identification. Bed in low position. Call bp light in reach. Side rails up X2. Adult w/ patient. 07:41 Triage completed. aa5 08:04 Inserted saline lock: 22 gauge in right antecubital area, using aseptic technique. bp Blood collected. 08:12 CT Head Brain wo Cont In Process Unspecified. EDMS 09:38 Straight cath inserted, using sterile technique, 16 Fr. Specimen obtained. Returned aa5 clear yellow urine. Patient tolerated well. 09:51 Sourav Gonzalez MD is Referral Physician. kdr 10:19 No provider procedures requiring assistance completed. IV discontinued, intact, bp bleeding controlled, No redness/swelling at site. Pressure dressing applied. Administered Medications: No medications were administered Outcome: 09:52 Discharge ordered by . kdr 10:19 Discharged to home via wheelchair, with family. bp 10:19 Condition: stable 10:19 Discharge instructions given to patient, family, Instructed on discharge instructions, follow up and referral plans. Demonstrated understanding of instructions, follow-up care. 10:21 Patient left the ED. bp Signatures: Dispatcher [employer] EDMS Neil Donovan MD MD kdr Calderon, Audri, RN RN aa5 Jh Neely, RN RN bp Harley, Charde cl3
--- NOTE | 2020-09-24 09:52 | EDPHYS ---
Physician Documentation [facility] Name: Kirsten Mayfield Age: 85 yrs Sex: Female : 1935 Arrival Date: 09/24/2020 Time: 06:37 Bed 14 Private MD: ED Physician Neil Donovan HPI: 09/24 09:56 This 85 yrs old Female presents to ER via Wheelchair with complaints of kdr Hallucination. 09:56 The patient presents with confusion. Onset: The symptoms/episode began/occurred kdr suddenly, last night, The patient has been having similar episodes for months but became acutely worse last night. She is constantly thinking that someone is in her house or that some of her children are present or local when they are not. Family is concerned that she may have a UTI or be dehydrated stating that she does not drink much water. Possible causes: CVA or TIA, UTI/dehydration. Historical: - Allergies: 07:25 No Known Allergies; aa5 - Home Meds: 07:48 Align probiotic [Active]; Iron CR Oral [Active]; omeprazole 40 mg Oral cpDR 1 cap once aa5 daily [Active]; sertraline 100 mg Oral tab 1 tab once daily [Active]; metoprolol tartrate 50 mg Oral tab 2 times per day [Active]; memantine 10 mg oral tab 1 tab 2 times per day [Active]; atorvastatin 20 mg Oral tab 1 tab nightly [Active]; rivastigmine tartrate 3 mg oral cap 2 times per day [Active]; amlodipine 5 mg tab 1 tab once daily [Active]; losartan 50 mg oral tab once daily [Active]; Xyzal 5 mg Oral tab 1 tab once daily [Active]; meloxicam 7.5 mg oral tab as needed for knee/leg pain [Active]; - PMHx: 07:25 CHF; colon cancer; Dementia; DVT; GERD; HARD OF HEARING; Hernia; High Cholesterol; aa5 Hypertension; - PSHx: 07:25 colon resection; Skin Cancer removed; Port-a-cath placed and removed; Bird's Nest aa5 Filter; - Immunization history:: Adult Immunizations up to date. - Social history:: Smoking status: Patient denies any tobacco usage or history of. ROS: 10:14 Constitutional: Negative for fever, chills, and weight loss, Eyes: Negative for injury, kdr pain, redness, and discharge, ENT: Negative for injury, pain, and discharge, Neck: Negative for injury, pain, and swelling, Cardiovascular: Negative for chest pain, palpitations, and edema, Respiratory: Negative for shortness of breath, cough, wheezing, and pleuritic chest pain, Abdomen/GI: Negative for abdominal pain, nausea, vomiting, diarrhea, and constipation, Back: Negative for injury and pain, : Negative for injury, bleeding, discharge, and swelling, MS/Extremity: Negative for injury and deformity, Skin: Negative for injury, rash, and discoloration, Allergy/Immunology: Negative for hives, rash, and allergies, Endocrine: Negative for neck swelling, polydipsia, polyuria, polyphagia, and marked weight changes, Hematologic/Lymphatic: Negative for swollen nodes, abnormal bleeding, and unusual bruising. 10:14 Neuro: Positive for altered mental status. 10:14 Psych: Positive for auditory hallucinations, visual hallucinations, delusional , Negative for drug dependence, alcohol dependence. Exam: 10:14 Constitutional: This is a well developed, well nourished patient who is awake, alert, kdr and in no acute distress. Head/Face: Normocephalic, atraumatic. Eyes: Pupils equal round and reactive to light, extra-ocular motions intact. Lids and lashes normal. Conjunctiva and sclera are non-icteric and not injected. Cornea within normal limits. Periorbital areas with no swelling, redness, or edema. Neck: Trachea midline, no thyromegaly or masses palpated, and no cervical lymphadenopathy. Supple, full range of motion without nuchal rigidity, or vertebral point tenderness. No Meningismus. Chest/axilla: Normal chest wall appearance and motion. Nontender with no deformity. No lesions are appreciated. Cardiovascular: Regular rate and rhythm with a normal S1 and S2. No gallops, murmurs, or rubs. Normal PMI, no JVD. No pulse deficits. Respiratory: Lungs have equal breath sounds bilaterally, clear to auscultation and percussion. No rales, rhonchi or wheezes noted. No increased work of breathing, no retractions or nasal flaring. Abdomen/GI: Soft, non-tender, with normal bowel sounds. No distension or tympany. No guarding or rebound. No evidence of tenderness throughout. Back: No spinal tenderness. No costovertebral tenderness. Full range of motion. Skin: Warm, dry with normal turgor. Normal color with no rashes, no lesions, and no evidence of cellulitis. MS/ Extremity: Pulses equal, no cyanosis. Neurovascular intact. Full, normal range of motion. 10:14 Neuro: Orientation: appropriate for stated age, to person, place, time, Not oriented to situation. Vital Signs: 07:23 BP 181 / 91; Pulse 64; Resp 16 S; Temp 98.2(O); Pulse Ox 94% on R/A; aa5 08:05 BP 187 / 74; Pulse 57; Resp 16; Pulse Ox 95% ; bp 08:31 BP 151 / 75; Pulse 64; Resp 16; Pulse Ox 95% ; bp 09:30 BP 145 / 71; Pulse 61; Resp 17; Pulse Ox 93% ; bp 10:19 BP 141 / 70; Pulse 59; Resp 17; Temp 98.5; Pulse Ox 96% ; bp MDM: 09:52 Patient medically screened. kdr 10:14 Data reviewed: vital signs, nurses notes, lab test result(s), radiologic studies. kdr Counseling: I had a detailed discussion with the patient and/or guardian regarding: the historical points, exam findings, and any diagnostic results supporting the discharge/admit diagnosis, lab results, radiology results, the need for outpatient follow up. 09/24 07:56 Order name: CBC with Diff; Complete Time: 09:16 [facility] 09/24 07:56 Order name: Chem 7; Complete Time: 09:16 [facility] 09/24 07:56 Order name: CT Head Brain wo Cont; Complete Time: 09:16 [facility] 09/24 07:56 Order name: Urine Dipstick-Ancillary (obtain specimen); Complete Time: 09:43 [facility] 09/24 07:56 Order name: Urine Culture [facility] 09/24 09:33 Order name: Urine Dipstick--Ancillary (enter results) eb Administered Medications: No medications were administered Disposition: 09/24/20 09:52 Discharged to Home. Impression: Altered mental status, unspecified, Dementia in other diseases classified elsewhere. - Condition is Stable. - Discharge Instructions: Dementia, [id number]. - Medication Reconciliation Form, Thank You Letter form. - Follow up: Sourav Gonzalez MD; When: 2 - 3 days; Reason: If symptoms return, Further diagnostic work-up, Recheck today's complaints, Continuance of care, Re-evaluation by your physician. - Problem is an acute exacerbation. - Symptoms are unchanged. Signatures: Dispatcher [employer] Neil Aguilar MD MD kdr Adrianna Loving RN RN aa5 Jh Neely RN RN bp Corrections: (The following items were deleted from the chart) 10:21 09:52 09/24/2020 09:52 Discharged to Home. Impression: Altered mental status, bp unspecified; Dementia in other diseases classified elsewhere. Condition is Stable. Forms are Medication Reconciliation Form, Thank You Letter, Antibiotic Education, Prescription Opioid Use. Follow up: Sourav Gonzalez; When: 2 - 3 days; Reason: If symptoms return, Further diagnostic work-up, Recheck today's complaints, Continuance of care, Re-evaluation by your physician. Problem is an acute exacerbation. Symptoms are unchanged. kdr
[2020-09-24 10:12] LABS: Urine Blood NEGATIVE (NEG); Urine Glucose NEGATIVE (NEG); Urine Protein NEGATIVE (NEG); Urine pH 5.5 (5.0-7.0)
[2020-09-24 10:30] VITALS: BP 141/70; TEMP 98.5; O2SAT 96
== END 2020-09-24 10:21 | disposition home or self-care (01) ==
LOC: ER 06:36
DX: F03.90 Unspecified dementia, unspecified severity, without behavioral disturbance, psychotic disturbance, mood disturbance, and anxiety (principal); R41.82 Altered mental status, unspecified; K21.9 Gastro-esophageal reflux disease without esophagitis; E78.00 Pure hypercholesterolemia, unspecified; Z85.038 Personal history of other malignant neoplasm of large intestine; I50.9 Heart failure, unspecified
CPT/HCPCS: 36415; 51702; 70450; 80048; 81003; 85025; 87086; 87088; 99284

== ENCOUNTER 2022-07-24 11:28 | Emergency (ER) | payer OTHER, BC ==
--- NOTE | 2022-07-24 12:38 | RAD REPORT ---
EXAM DESCRIPTION: [facility] Angel Single View07/24/2022 12:11 pm CLINICAL HISTORY: Chest pain COMPARISON: 2017 FINDINGS: The lungs appear clear of acute infiltrate. The heart is borderline enlarged IMPRESSION: No acute abnormalities displayed
--- NOTE | 2022-07-24 12:41 | RAD REPORT ---
EXAM DESCRIPTION: RAD - Forearm Left - 07/24/2022 12:12 pm CLINICAL HISTORY: Left forearm pain status post injury FINDINGS: The bones are osteoporotic. No acute fracture or dislocation seen involving the left forearm If the patient continues to have symptoms to suggest an occult fracture then follow up x-ray in 7 day s would be recommended
--- NOTE | 2022-07-24 13:08 | EDPHYS ---
Physician Documentation [facility] Name: Kirsten Mayfield Age: 86 yrs Sex: Female : 1935 Arrival Date: 07/24/2022 Time: 11:29 Bed 2 Private MD: Sourav Gonzalez C ED Physician Brock Cook HPI: 07/24 11:52 This 86 yrs old Female presents to ER via Wheelchair with complaints of Fall Injury. snw 11:52 Details of fall: The patient fell from an upright position, while walking, tripped over snw threshold of doorway. Onset: The symptoms/episode began/occurred suddenly, last night. Associated injuries: The patient sustained left wrist/elbow, left side. Severity of symptoms: At their worst the symptoms were mild. It is unknown whether or not the patient has had similar symptoms in the past. It is unknown whether or not the patient has recently seen a physician. no LOC. Historical: - Allergies: 11:38 No Known Allergies; [facility] Meds: 11:46 omeprazole 20 mg Oral cpDR 1 cap once daily [Active]; losartan 50 mg oral tab 1 tab ko1 once daily [Active]; amlodipine 5 mg tab 1 tab once daily [Active]; quetiapine 50 mg oral Tb24 2 tabs once daily [Active]; atorvastatin 20 mg oral tab 1 tab once daily [Active]; sertraline 150 mg oral cap 1 cap once daily [Active]; famotidine 20 mg Oral tab 1 tab once daily [Active]; memantine 5 mg oral tab 2 tabs 2 times per day [Active]; rivastigmine tartrate 3 mg oral cap 1 cap 2 times per day [Active]; metoprolol tartrate 50 mg Oral tab 1 tab 2 times per day [Active]; Flonase 50 mcg/actuation Nasal spsn 1 spray 2 times per day [Active]; Iron CR 27mg Oral 27 mg twice weekly [Active]; multivitamin oral tab daily [Active]; Probiotic oral daily [Active]; - PMHx: 11:38 Hypertension; High Cholesterol; Hernia; HARD OF HEARING; GERD; DVT; Dementia; colon jh5 cancer; CHF; - Immunization history:: Adult Immunizations up to date. - Social history:: Smoking status: Patient/guardian denies using tobacco, the patient reports quitting approximately 30 years ago. ROS: 11:51 Constitutional: Negative for fever, chills, and weight loss, Eyes: Negative for injury, snw pain, redness, and discharge, ENT: Negative for injury, pain, and discharge, Neck: Negative for injury, pain, and swelling, Cardiovascular: Negative for chest pain, palpitations, and edema, Respiratory: Negative for shortness of breath, cough, wheezing, and pleuritic chest pain, Abdomen/GI: Negative for abdominal pain, nausea, vomiting, diarrhea, and constipation, Back: Negative for injury and pain, : Negative for injury, bleeding, discharge, and swelling, Skin: Negative for injury, rash, and discoloration, Neuro: Negative for headache, weakness, numbness, tingling, and seizure. 11:51 MS/extremity: Positive for injury or acute deformity, of the left arm and left ribs. Exam: 11:50 Constitutional: This is a well developed, well nourished patient who is awake, alert, snw and in no acute distress. Head/Face: Normocephalic, atraumatic. Eyes: Pupils equal round and reactive to light, extra-ocular motions intact. Lids and lashes normal. Conjunctiva and sclera are non-icteric and not injected. Cornea within normal limits. Periorbital areas with no swelling, redness, or edema. ENT: Nares patent. No nasal discharge, no septal abnormalities noted. Tympanic membranes are normal and external auditory canals are clear. Oropharynx with no redness, swelling, or masses, exudates, or evidence of obstruction, uvula midline. Mucous membranes moist. Neck: Trachea midline, no thyromegaly or masses palpated, and no cervical lymphadenopathy. Supple, full range of motion without nuchal rigidity, or vertebral point tenderness. No Meningismus. Chest/axilla: Normal chest wall appearance and motion. Nontender with no deformity. No lesions are appreciated. Cardiovascular: Regular rate and rhythm with a normal S1 and S2. No gallops, murmurs, or rubs. Normal PMI, no JVD. No pulse deficits. Respiratory: Lungs have equal breath sounds bilaterally, clear to auscultation and percussion. No rales, rhonchi or wheezes noted. No increased work of breathing, no retractions or nasal flaring. Abdomen/GI: Soft, non-tender, with normal bowel sounds. No distension or tympany. No guarding or rebound. No evidence of tenderness throughout. Back: No spinal tenderness. No costovertebral tenderness. Full range of motion. Neuro: Awake and alert, GCS 15, oriented to person, place, time, and situation. Cranial nerves II-XII grossly intact. Motor strength 5/5 in all extremities. Sensory grossly intact. Cerebellar exam normal. Normal gait. Psych: Awake, alert, with orientation to person, place and time. Behavior, mood, and affect are within normal limits. 11:50 Musculoskeletal/extremity: Circulation is intact in all extremities. Sensation intact. left wrist and left anterior lower rib tender s/p fall last pm. 11:50 Skin: injury, contusion(s), that are deep, of the dorsal aspect of left wrist and heel of left hand. Vital Signs: 11:36 BP 158 / 73; Pulse 58; Resp 18; Temp 98.6; Pulse Ox 95% ; Weight 54.43 kg; Height 5 ft. jh5 3 in. (160.02 cm); Pain 8/10; 12:23 BP 180 / 72; Pulse 68; Pulse Ox 98% on R/A; ko1 13:26 BP 157 / 63; Pulse 62; Pulse Ox 100% ; ko1 11:36 Body Mass Index 21.26 (54.43 kg, 160.02 cm) jh5 [place] Coma Score: 11:51 Eye Response: spontaneous(4). Verbal Response: oriented(5). Motor Response: obeys vg1 commands(6). Total: 15. Trauma Score (Adult): 11:51 Eye Response: spontaneous(1); Verbal Response: oriented(1); Motor Response: obeys vg1 commands(2); Systolic BP: > 89 mm Hg(4); Respiratory Rate: 10 to 29 per min(4); [place] Score: 15; Trauma Score: 12 MDM: 11:30 Patient medically screened. snw 13:09 Data reviewed: vital signs, nurses notes, radiologic studies. Data interpreted: Pulse snw oximetry: on room air is 98 %. Interpretation: normal. Response to treatment: There is no appreciated change of the patient's symptoms at this time. Special discussion: Based on the history and exam findings, there is no indication for further emergent testing or inpatient evaluation. I discussed with the patient/guardian the need to see the learning disabilities teacher for further evaluation of the symptoms. 07/24 11:50 Order name: Chest Single View XRAY; Complete Time: 12:39 snw 07/24 11:50 Order name: Forearm Left XRAY; Complete Time: 12:43 snw Administered Medications: No medications were administered Disposition: 13:43 Co-signature as Attending Physician, Brock Cook DO I was immediately available on-site ms3 in the Emergency Department for consultation in the care of the patient. Disposition Summary: 07/24/22 13:08 Discharge Ordered Location: Home snw Condition: Stable snw Diagnosis - Fall on same level from slipping, tripping and stumbling with subsequent striking snw against object - Contusion of forearm snw - Contusion of front wall of thorax snw Followup: snw - With: Emergency Department - When: As needed - Reason: Worsening of condition Followup: snw - With: Sourav Gonzalez MD - When: 1 week - Reason: Recheck today's complaints, Continuance of care, Re-evaluation by your physician Discharge Instructions: - Discharge Summary Sheet snw - Contusion snw - Rib Contusion snw - Fall Prevention in the Home, Adult snw Forms: - Medication Reconciliation Form snw - Thank You Letter snw - Antibiotic Education snw - Prescription Opioid Use snw Prescriptions: - Mobic 7.5 mg Oral Tablet - take 1 tablet by ORAL route once daily take with food; 10 tablet; Refills: 0, snw Product Selection Permitted Signatures: Dispatcher [employer] EDMS Erlinda Zaman, ANDRES-C BOSS MINER-CsnBrock Groves DO DO ms3 Bhumi Alexander, RN RN jh5 Alea Marquez, RN RN ko1
--- NOTE | 2022-07-24 13:08 | ER ---
Nurse's Notes [facility] Name: Kirsten Mayfield Age: 86 yrs Sex: Female : 1935 Arrival Date: 07/24/2022 Time: 11:29 Bed 2 Private MD: Sourav Gonzalez C Diagnosis: Fall on same level from slipping, tripping and stumbling with subsequent striking against object;Contusion of forearm;Contusion of front wall of thorax Presentation: 07/24 11:36 Chief complaint: Patient states: fell last night stepping out the house, tripped. Hit jh5 left ribs and left wrist. Left wrist is noted to be swollen and bruised. denies hitting head, denies blood thinners. Coronavirus screen: Vaccine status: Patient reports receiving the 2nd dose of the covid vaccine. Client denies travel out of the [place] in the last 14 days. Ebola Screen: Patient negative for fever greater than or equal to 101.5 degrees Fahrenheit, and additional compatible Ebola Virus Disease symptoms Patient denies exposure to infectious person. Patient denies travel to an Ebola-affected area in the 21 days before illness onset. Initial Sepsis Screen: Does the patient meet any 2 criteria? No. Patient's initial sepsis screen is negative. Does the patient have a suspected source of infection? No. Patient's initial sepsis screen is negative. Risk Assessment: Do you want to hurt yourself or someone else? Patient reports no desire to harm self or others. 11:36 Method Of Arrival: Wheelchair [facility] 11:36 Acuity: STEFFEN 3 jh5 Triage Assessment: 11:38 General: Appears in no apparent distress. uncomfortable, slender, well groomed, well jh5 developed, Behavior is calm, cooperative, appropriate for age. Pain: Complains of pain in left ribs, left wrist. Historical: - Allergies: 11:38 No Known Allergies; [facility] - Home Meds: 11:46 omeprazole 20 mg Oral cpDR 1 cap once daily [Active]; losartan 50 mg oral tab 1 tab ko1 once daily [Active]; amlodipine 5 mg tab 1 tab once daily [Active]; quetiapine 50 mg oral Tb24 2 tabs once daily [Active]; atorvastatin 20 mg oral tab 1 tab once daily [Active]; sertraline 150 mg oral cap 1 cap once daily [Active]; famotidine 20 mg Oral tab 1 tab once daily [Active]; memantine 5 mg oral tab 2 tabs 2 times per day [Active]; rivastigmine tartrate 3 mg oral cap 1 cap 2 times per day [Active]; metoprolol tartrate 50 mg Oral tab 1 tab 2 times per day [Active]; Flonase 50 mcg/actuation Nasal spsn 1 spray 2 times per day [Active]; Iron CR 27mg Oral 27 mg twice weekly [Active]; multivitamin oral tab daily [Active]; Probiotic oral daily [Active]; - PMHx: 11:38 Hypertension; High Cholesterol; Hernia; HARD OF HEARING; GERD; DVT; Dementia; colon jh5 cancer; CHF; - Immunization history:: Adult Immunizations up to date. - Social history:: Smoking status: Patient/guardian denies using tobacco, the patient reports quitting approximately 30 years ago. Screenin:44 [facility] ED Fall Risk Assessment (Adult) History of falling in the last 3 months, ko1 including since admission Yes- fall prone (multiple falls) (3 pts) Confusion or Disorientation No (0 pts) Intoxicated or Sedated No (0 pts) Impaired Gait No (0 pts) Mobility Assist Device Used No (0 pt) Altered Elimination No (0 pt) Score/Fall Risk Level 3 or more points = High Risk Oriented to surroundings, Maintained a safe environment, Educated pt \T\ family on fall prevention, incl call for assistance when getting out of bed, Assessed \T\ reinforced patient's understanding of fall precautions, Provided non-skid footwear, Hourly rounding (assess needs \T\ fall precautionary measures) done, Used ambulatory aids as needed (educated on \T\ assisted with), Used gait belt as appropriate Implemented a Fall Risk Plan of Care, Apply high fall risk patient identification: yellow non skid footwear/ fall signage, Remained w/in arm's length of patient and in sight while toileting, Remained with patient while ambulating, Utilized family, sitter, or virtual residential solar sales consultant as indicated. Abuse screen: Denies threats or abuse. Denies injuries from another. Nutritional screening: No deficits noted. Tuberculosis screening: Fall Risk Fall in past 12 months (25 points). Primary Survey: 11:51 NO uncontrolled hemorrhage observed. A: The client is awake and alert. The airway is vg1 patent. Breathing/Chest: Spontaneous respiratory effort, equal unlabored respirations, breath sounds clear bilaterally, regular pattern, symmetrical chest rise and fall. Respiratory effort: spontaneous. Circulation: No external hemorrhage present. Regular and strong central pulse, skin warm/dry/normal color. Skin color: pink. Disability Pupils are equal, round, reactive to light and accommodation. Client is alert. Exposure/Environment: All clothing and personal items were removed. Forensic evidence collection is not deemed to be indicated at this time. Items placed in patient belonging bag. There is no evidence of uncontrolled external bleeding. No obvious injuries are noted at this time. A warming method has been applied: A warm blanket has been provided to the patient. Secondary Survey: 11:51 HEENT: No deficits noted. Gastrointestinal: No deficits noted. Abdomen is soft. : No vg1 signs and/or symptoms were reported regarding the genitourinary system. Musculoskeletal: Swelling present in left wrist. Assessment: 11:49 General: Appears in no apparent distress. comfortable, Behavior is calm, cooperative. vg1 Pain: Complains of pain in left wrist, left elbow, left side of rib Pain currently is 3 out of 10 on a pain scale. Pain began 1 day ago. Neuro: Level of Consciousness is awake, alert, obeys commands, Oriented to person, place, time, situation. Cardiovascular: Patient's skin is warm and dry. Respiratory: Airway is patent Respiratory effort is even, unlabored, Breath sounds are clear bilaterally. GI: No signs and/or symptoms were reported involving the gastrointestinal system. : No signs and/or symptoms were reported regarding the genitourinary system. EENT: No signs and/or symptoms were reported regarding the EENT system. Derm: Bruising that is on left arm. Musculoskeletal: Swelling present in left wrist. Vital Signs: 11:36 BP 158 / 73; Pulse 58; Resp 18; Temp 98.6; Pulse Ox 95% ; Weight 54.43 kg; Height 5 ft. jh5 3 in. (160.02 cm); Pain 8/10; 12:23 BP 180 / 72; Pulse 68; Pulse Ox 98% on R/A; ko1 13:26 BP 157 / 63; Pulse 62; Pulse Ox 100% ; ko1 11:36 Body Mass Index 21.26 (54.43 kg, 160.02 cm) jh5 [place] Coma Score: 11:51 Eye Response: spontaneous(4). Verbal Response: oriented(5). Motor Response: obeys vg1 commands(6). Total: 15. Trauma Score (Adult): 11:51 Eye Response: spontaneous(1); Verbal Response: oriented(1); Motor Response: obeys vg1 commands(2); Systolic BP: > 89 mm Hg(4); Respiratory Rate: 10 to 29 per min(4); [place] Score: 15; Trauma Score: 12 ED Course: 11:29 Patient arrived in ED. mr 11:29 Sourav Gonzalez MD is Private Physician. mr 11:29 Erlinda Zaman FNP-C [facility]. snw 11:29 Brock Cook DO is Attending Physician. snw 11:38 Triage completed. jh5 11:38 Arm band placed on right wrist. [facility] 11:41 Alea Marquez, BENJIE is Primary Nurse. ko1 11:44 Patient has correct armband on for positive identification. Fall risk band placed. Bed ko1 in low position. Call light in reach. Side rails up X 1. Adult w/ patient. Pulse ox on. NIBP on. 11:51 Patient maintains SpO2 saturation greater than 95% on room air. vg1 12:13 Chest Single View XRAY In Process Unspecified. EDMS 12:13 Forearm Left XRAY In Process Unspecified. EDMS 13:07 Sourav Gonzalez MD is Referral Physician. snw 13:26 No provider procedures requiring assistance completed. Patient did not have IV access ko1 during this emergency room visit. Administered Medications: No medications were administered Medication: 11:49 VIS not applicable for this client. vg1 Outcome: 13:08 Discharge ordered by . snw 13:26 Discharged to home via wheelchair, with family. ko1 13:26 Condition: stable 13:26 Discharge instructions given to patient, family, Instructed on discharge instructions, follow up and referral plans. medication usage, Demonstrated understanding of instructions, follow-up care, medications, Prescriptions given X 1. 13:27 Patient left the ED. ko1 Signatures: Dispatcher [employer] EDMT Erlinda Zaman FNP-C SENIOR INTEGRATION DEVELOPER-Csnw Breanna Esposito mr Mel Torres RN RN vg1 Bhumi Alexander RN RN 5 Alea Marquez, RN RN ko1
[2022-07-24 13:31] VITALS: TEMP 98.6
[2022-07-24 13:33] VITALS: BP 157/63; O2SAT 100
== END 2022-07-24 13:27 | disposition home or self-care (01) ==
LOC: ER 11:28
DX: S20.212A Contusion of left front wall of thorax, initial encounter (principal); S50.12XA Contusion of left forearm, initial encounter; W01.10XA Fall on same level from slipping, tripping and stumbling with subsequent striking against unspecified object, initial encounter; I10 Essential (primary) hypertension; F03.90 Unspecified dementia, unspecified severity, without behavioral disturbance, psychotic disturbance, mood disturbance, and anxiety; E78.00 Pure hypercholesterolemia, unspecified
CPT/HCPCS: 71045

== ENCOUNTER 2022-08-25 09:20 | Observation (INO) | payer OTHER, BC ==
[2022-08-25 10:12] LABS: Absolute Lymphocytes (CBC) 0.9 K/uL (0.7-4.9); Lymphocytes % 23.7 % (15.3-44.8); MCV 95.6 fL (80-100); MPV 6.9 fL (7.6-11.3); RBC Red Blood Cell Count 3.77 M/uL (3.86-4.86)
[2022-08-25 10:31] LABS: Potassium 3.5 mmol/L (3.5-5.1); Troponin High Sensitivity 23.8 pg/mL (<58.9)
--- NOTE | 2022-08-25 11:13 | RAD REPORT ---
EXAM DESCRIPTION: Miguel Angel Single View08/25/2022 10:44 am CLINICAL HISTORY: Chest pain COMPARISON: July 2022 FINDINGS: Mild right lung opacities. Left lung appears clear of acute infiltrate The heart is mildly enlarged IMPRESSION: Mild right lung opacities may indicate a mild pneumonia
[2022-08-25 11:25] LABS: Urine Blood Negative (Negative); Urine Glucose Negative (Negative); Urine Protein 1+ (Negative); Urine Specific Gravity 1.015 (1.005-1.030)
[2022-08-25 11:34] LABS: Specific Gravity 1.018 (1.005-1.030); Urine Bacteria None Seen /HPF (<20); Urine Bilirubin NEGATIVE (Negative); Urine Blood Negative (Negative); Urine Clarity Clear (Clear); Urine Color Yellow (Yellow); Urine Glucose NEGATIVE (Negative); Urine Mucus Slight /HPF (None Seen); Urine Protein TRACE (Negative); Urine RBC <5 /HPF (None Seen); Urine Urobilinogen Normal (Normal)
--- NOTE | 2022-08-25 12:01 | ER ---
Nurse's Notes [facility] Name: Kirsten Mayfield Age: 87 yrs Sex: Female : 1935 Arrival Date: 08/25/2022 Time: 09:22 Bed 5 Private MD: Sourav Gonzalez C Diagnosis: SARS-associated coronavirus as the cause of diseases classified elsewhere;Hypoxia Presentation: 08/25 09:27 Chief complaint: Patient states: was sent by Dr. Gonzalez for SOB , she tested positive for iw COVID, she is not eating or drinking , was started on lagevrio antiviral. Coronavirus screen: Client presents with at least one sign or symptom that may indicate coronavirus-19. Ebola Screen: Patient negative for fever greater than or equal to 101.5 degrees Fahrenheit, and additional compatible Ebola Virus Disease symptoms Patient denies exposure to infectious person. Patient denies travel to an Ebola-affected area in the 21 days before illness onset. No symptoms or risks identified at this time. Initial Sepsis Screen: Does the patient meet any 2 criteria? No. Patient's initial sepsis screen is negative. Does the patient have a suspected source of infection? No. Patient's initial sepsis screen is negative. Risk Assessment: Do you want to hurt yourself or someone else? Patient reports no desire to harm self or others. Onset of symptoms was August 25, 2022. 09:27 Method Of Arrival: Wheelchair iw 09:27 Acuity: STEFFEN 3 iw Triage Assessment: 14:19 General: Appears uncomfortable, Behavior is calm, cooperative. Respiratory: the patient ll1 has moderate shortness of breath. 14:40 Respiratory: Onset: The symptoms/episode began/occurred Sunday. ll1 Historical: - Allergies: 09:28 No Known Allergies; iw - Home Meds: 09:41 amlodipine 5 mg tab 1 tab once daily [Active]; atorvastatin 20 mg Oral tab 1 tab once iw daily [Active]; famotidine 20 mg Oral tab 1 tab once daily [Active]; Iron CR 27mg Oral 27 mg twice weekly [Active]; losartan 50 mg Oral tab 1 tab once daily [Active]; memantine 10 mg oral tab 2 times per day [Active]; rivastigmine tartrate 3 mg Oral cap 1 cap 2 times per day [Active]; metoprolol tartrate 50 mg Oral tab 1 tab 2 times per day [Active]; multivitamin Oral tab daily [Active]; Align 10.5 mg (10 million cell) oral chew daily [Active]; omeprazole 20 mg Oral cpDR 1 cap once daily [Active]; quetiapine 50 mg Oral Tb24 2 tabs once daily [Active]; sertraline 150 mg Oral cap 1 cap once daily [Active]; ipratropium bromide nasal 3 times per day [Active]; - PMHx: 09:28 CHF; colon cancer; Dementia; DVT; GERD; HARD OF HEARING; Hernia; High Cholesterol; iw Hypertension; - Immunization history:: Adult Immunizations up to date. - Social history:: Smoking status: Patient denies any tobacco usage or history of. Screenin:[address] [facility] ED Fall Risk Assessment (Adult) Impaired Gait Yes (1 pt) Mobility Assist ll1 Device Used Yes (1 pt) Score/Fall Risk Level 0 - 2 = Low Risk Oriented to surroundings, Maintained a safe environment, Educated pt \T\ family on fall prevention, incl call for assistance when getting out of bed, Hourly rounding (assess needs \T\ fall precautionary measures) done. Abuse screen: Denies threats or abuse. Nutritional screening: No deficits noted. Tuberculosis screening: No symptoms or risk factors identified. Assessment: 09:35 General: Appears uncomfortable, ill, Behavior is calm, cooperative, appropriate for ll1 age. Pain: Denies pain. Neuro: No deficits noted. Respiratory: Airway is patent Trachea midline Respiratory effort is even, labored, Respiratory pattern is regular, symmetrical. GI: Reports no appetite. Musculoskeletal: Reports weakness in generalized. 10:15 Reassessment: No changes from previously documented assessment. Patient and/or family ll1 updated on plan of care and expected duration. Pain level reassessed. Patient is alert, oriented x 3, equal unlabored respirations, skin warm/dry/pink. 11:15 Reassessment: No changes from previously documented assessment. Patient and/or family ll1 updated on plan of care and expected duration. Pain level reassessed. Patient is alert, oriented x 3, equal unlabored respirations, skin warm/dry/pink. 12:06 Reassessment: No changes from previously documented assessment. Patient and/or family ll1 updated on plan of care and expected duration. Pain level reassessed. Patient is alert, oriented x 3, equal unlabored respirations, skin warm/dry/pink. 14:19 Reassessment: No changes from previously documented assessment. Patient and/or family ll1 updated on plan of care and expected duration. Pain level reassessed. Patient is alert, oriented x 3, equal unlabored respirations, skin warm/dry/pink. 14:38 Reassessment: No changes from previously documented assessment. Patient and/or family ll1 updated on plan of care and expected duration. Pain level reassessed. Patient is alert, oriented x 3, equal unlabored respirations, skin warm/dry/pink. 14:40 Cardiovascular: Rhythm is sinus bradycardia. ll1 14:40 Respiratory: Breath sounds are clear bilaterally. ll1 Vital Signs: 09:27 BP 104 / 60; Pulse 60; Resp 18; Pulse Ox 93% on R/A; iw 10:00 BP 116 / 55; Pulse 56; Resp 17; Temp 98.5; Pulse Ox 96% on R/A; ll1 12:00 BP 129 / 54; Pulse 55; Pulse Ox 93% on R/A; ll1 12:07 BP 126 / 75; Pulse 55; Resp 18; Pulse Ox 97% on 2 lpm NC; ll1 14:18 BP 129 / 64; Pulse 57; Resp 18; Pulse Ox 99% ; ll1 ED Course: 09:22 Patient arrived in ED. as 09:22 Sourav Gonzalez MD is Private Physician. as 09:25 Brock Cook DO is Attending Physician. ms3 09:28 Triage completed. iw 09:28 Arm band placed on. iw 09:32 Lobito Souza, BENJIE is Primary Nurse. ll1 09:32 Patient placed in an exam room, on a stretcher. ll1 09:37 Patient has correct armband on for positive identification. Bed in low position. Call ll1 light in reach. Side rails up X2. Client placed on continuous cardiac and pulse oximetry monitoring. NIBP monitoring applied. 10:09 Inserted saline lock: 22 gauge in right antecubital area, using aseptic technique. rs5 Blood collected. 10:10 CBC with Diff Sent. rs5 10:10 Basic Metabolic Panel Sent. rs5 10:10 Troponin HS Sent. rs5 10:46 XRAY Chest (1 view) In Process Unspecified. EDMS 11:18 Urinalysis Sent. ll1 11:59 Sourav Gonzalez MD is Hospitalizing Provider. ms3 14:19 No provider procedures requiring assistance completed. Patient admitted, IV remains in [address] Administered Medications: 12:15 Drug: Decadron - Dexamethasone 8 mg Route: IVP; Site: right antecubital; [facility] 14:40 Follow up: Response: No adverse reaction [facility] Medication: 10:20 VIS not applicable for this client. 1 Outcome: 12:00 Decision to Hospitalize by Provider. ms3 14:38 Condition: stable 1 14:39 Admitted to Tele accompanied by tech, via stretcher, room room 412, with chart, Report [facility] called to So Ferrara RN 14:39 Instructed on the need for admit. 14:47 Patient left the ED. [facility] Signatures: Dispatcher [employer] Hazel Yeh Irene, RN BENJIE Lobito Souza RN RN [facility] Brock Cook, DO ms3 Sam Kessler rs5 Corrections: (The following items were deleted from the chart) 09:30 09:27 Chief complaint: Patient states: was sent by Dr. Gonzalez for SOB , she tested iw positive for COVID, she is not eating or drinking iw 09:44 09:41 Home Meds: Flonase 50 mcg/actuation Nasal spsn 1 spray 2 times per day; iw 14:40 14:38 Discharged to [place] [id number]
--- NOTE | 2022-08-25 12:01 | EDPHYS ---
Physician Documentation [facility] Name: Kirsten Mayfield Age: 87 yrs Sex: Female : 1935 Arrival Date: 08/25/2022 Time: 09:22 Bed 5 Private MD: Sourav Gonzalez C ED Physician Brock Cook HPI: 08/25 10:19 This 87 yrs old Female presents to ER via Wheelchair with complaints of Shortness Of ms3 Breath - covid+. 10:19 87-year-old female presents with her daughter for shortness of breath and hypoxia. Of ms3 note patient was diagnosed with COVID via a home test yesterday. Patient was started on Molnupiravi by Dr. Gonzalez yesterday. Patient's daughter states patient's oxygen saturation was in the 80s on waking up this morning. After waking up oxygen saturations were noted to range between 88 and 91%.. Historical: - Allergies: 09:28 No Known Allergies; iw - Home Meds: 09:41 amlodipine 5 mg tab 1 tab once daily [Active]; atorvastatin 20 mg Oral tab 1 tab once iw daily [Active]; famotidine 20 mg Oral tab 1 tab once daily [Active]; Iron CR 27mg Oral 27 mg twice weekly [Active]; losartan 50 mg Oral tab 1 tab once daily [Active]; memantine 10 mg oral tab 2 times per day [Active]; rivastigmine tartrate 3 mg Oral cap 1 cap 2 times per day [Active]; metoprolol tartrate 50 mg Oral tab 1 tab 2 times per day [Active]; multivitamin Oral tab daily [Active]; Align 10.5 mg (10 million cell) oral chew daily [Active]; omeprazole 20 mg Oral cpDR 1 cap once daily [Active]; quetiapine 50 mg Oral Tb24 2 tabs once daily [Active]; sertraline 150 mg Oral cap 1 cap once daily [Active]; ipratropium bromide nasal 3 times per day [Active]; - PMHx: 09:28 CHF; colon cancer; Dementia; DVT; GERD; HARD OF HEARING; Hernia; High Cholesterol; iw Hypertension; - Immunization history:: Adult Immunizations up to date. - Social history:: Smoking status: Patient denies any tobacco usage or history of. ROS: 10:19 Constitutional: Negative for fever, and chills. Neck: Negative for injury, pain, and ms3 swelling, Cardiovascular: Negative for chest pain, and palpitations. 10:19 Skin: Negative for injury, rash, and discoloration. 10:19 Respiratory: Positive for cough, shortness of breath. 10:19 All other systems are negative. Exam: 10:18 ECG was reviewed by the Attending Physician. ms3 10:19 Constitutional: This is a well developed, well nourished patient who is awake, alert, ms3 and in no acute distress. Head/Face: Normocephalic, atraumatic. Neck: Trachea midline, no cervical lymphadenopathy. Supple, full range of motion without nuchal rigidity, or vertebral point tenderness. No Meningismus. Chest/axilla: Normal chest wall appearance and motion. Nontender with no deformity. Cardiovascular: Regular rate and rhythm with a normal S1 and S2. No gallops, murmurs, or rubs. Normal PMI, no JVD. No pulse deficits. Respiratory: Lungs have equal breath sounds bilaterally, clear to auscultation and percussion. No rales, rhonchi or wheezes noted. No increased work of breathing, no retractions or nasal flaring. Abdomen/GI: Soft, non-tender, with normal bowel sounds. No distension or tympany. No guarding or rebound. No evidence of tenderness throughout. Skin: Warm, dry with normal turgor. Normal color with no rashes, no lesions, and no evidence of cellulitis. MS/ Extremity: Pulses equal, no cyanosis. Neurovascular intact. Full, normal range of motion. Vital Signs: 09:27 BP 104 / 60; Pulse 60; Resp 18; Pulse Ox 93% on R/A; iw 10:00 BP 116 / 55; Pulse 56; Resp 17; Temp 98.5; Pulse Ox 96% on R/A; ll1 12:00 BP 129 / 54; Pulse 55; Pulse Ox 93% on R/A; ll1 12:07 BP 126 / 75; Pulse 55; Resp 18; Pulse Ox 97% on 2 lpm NC; ll1 14:18 BP 129 / 64; Pulse 57; Resp 18; Pulse Ox 99% ; ll1 MDM: 09:53 Patient medically screened. ms3 10:19 Differential diagnosis: Myocardial Infarction pneumonia, COVID 19. ms3 12:01 Data reviewed: vital signs, nurses notes, lab test result(s), cardiac enzymes, troponin ms3 i, CBC, urinalysis, radiologic studies, plain films, and as a result, I will admit patient. Consideration of Admission/Observation Patient was admitted/placed on observation. Management of patient was discussed with the following: Primary Care Provider: Dr Gonzalez. I considered the following discharge prescriptions or medication management in the emergency department Medications were administered in the Emergency Department. See MAR. Independent interpretation of the following test(s) in the Emergency Department electronic device monitor: rate is 89 beats/min, Rhythm is normal sinus rhythm, with no ectopy, Interpretation: normal rate, normal rhythm. Historians other than the Patient: Daughter/Son: Daughter. Care significantly affected by the following chronic conditions: Congestive Heart failure, Dementia, HTN. Counseling: I had a detailed discussion with the patient and/or guardian regarding: the historical points, exam findings, and any diagnostic results supporting the discharge/admit diagnosis, lab results, radiology results, the need for further work-up and treatment in the hospital. ED course: Discussed case with Dr. Gonzalez. He would like patient placed as an inpatient admission. He would like antivirals continued, 8 mg dexamethasone IV given x1, pulmonary consult for Dr. Garcia, and 2 L oxygen via nasal cannula. Discussed admission with patient and her daughter. Patient remains in stable condition in the emergency department.. 08/25 09:54 Order name: COVID-19 SARS RT PCR; Complete Time: 11:16 ms3 08/25 09:54 Order name: Basic Metabolic Panel; Complete Time: 11:16 ms3 08/25 09:54 Order name: CBC with Diff; Complete Time: 11:16 ms3 08/25 09:54 Order name: Troponin HS; Complete Time: 11:16 ms3 08/25 10:11 Order name: Urinalysis; Complete Time: 11:39 ms3 08/25 11:25 Order name: Urine Dipstick-Ancillary; Complete Time: 11:39 EDMS 08/25 09:54 Order name: XRAY Chest (1 view); Complete Time: 11:16 ms3 08/25 09:54 Order name: EKG; Complete Time: 09:54 ms3 08/25 12:10 Order name: CONS Physician Consult EDMS 08/25 12:11 Order name: Basic Metabolic Panel EDMS 08/25 12:11 Order name: Basic Metabolic Panel EDMS 08/25 12:11 Order name: CBC with Automated Diff EDMS 08/25 12:11 Order name: CBC with Automated Diff EDMS 08/25 09:54 Order name: Cardiac monitoring; Complete Time: 10:00 ms3 08/25 09:54 Order name: EKG - Nurse/Tech; Complete Time: 10:00 ms3 08/25 09:54 Order name: IV Saline Lock; Complete Time: 10:10 ms3 08/25 09:54 Order name: Labs collected and sent; Complete Time: 10:10 ms3 08/25 09:54 Order name: O2 Per Protocol; Complete Time: 09:54 ms3 08/25 09:54 Order name: O2 Sat Monitoring; Complete Time: 09:54 ms3 08/25 10:11 Order name: Urine Dipstick-Ancillary (obtain specimen); Complete Time: 11:18 ms3 08/25 12:11 Order name: Heart Healthy EDMS EC:18 Rate is 57 beats/min. Rhythm is regular. Left axis deviation noted. UT interval is ms3 normal. QRS interval is normal. Clinical impression: Sinus bradycardia. Interpreted by me. Reviewed by me. Administered Medications: 12:15 Drug: Decadron - Dexamethasone 8 mg Route: IVP; Site: right antecubital; ll1 14:40 Follow up: Response: No adverse reaction ll1 Disposition Summary: 08/25/22 12:00 Hospitalization Ordered Hospitalization Status: Inpatient Admission ms3 Provider: Sourav Gonzalez ms3 Location: Telemetry/[facility] (Inpatient) ms3 Condition: Stable ms3 Problem: new ms3 Symptoms: are unchanged ms3 Bed/Room Type: Standard ms3 Room Assignment: 412(08/25/22 14:14) eb Diagnosis - SARS-associated coronavirus as the cause of diseases classified elsewhere ms3 - Hypoxia ms3 Forms: - Medication Reconciliation Form ms3 - SBAR form ms3 Signatures: Dispatcher [employer] Carola Estrada, RN RN Karen Mason Lynsay, RN RN ll1 Brock Cook DO DO ms3 Corrections: (The following items were deleted from the chart) 09:44 09:41 Home Meds: Flonase 50 mcg/actuation Nasal spsn 1 spray 2 times per day; 14:14 12:00 ms3 eb
[2022-08-25] MEDS ORDERED: ACETAMINOPHEN 500 MG TAB PO PRN (12:08)
[2022-08-25] MEDS ORDERED: dexAMETHasone 10 MG/ML VIAL ONE (12:12)
[2022-08-25 15:00] VITALS: BMI 22.1
[2022-08-25] MEDS ORDERED: INFLUENZA VACCINE (for 6+ mo) 0.5 ML DOSE IMVAC ONE (17:00)
[2022-08-25] MEDS ORDERED: NA CHLORIDE 0.9% 1,000 ML IV SCH (18:00)
[2022-08-25] MEDS: RIVASTIGMINE TARTRATE 1.5 MG PO SCH (20:16)
[2022-08-25] MEDS: MOLNUPIRAVIR 200 MG PO SCH (20:16)
[2022-08-25] MEDS: MEMANTINE HCL 10 MG TABLET PO SCH (20:16)
[2022-08-25] MEDS: METOPROLOL TAR 50 MG TAB PO SCH (20:16)
[2022-08-25] MEDS ORDERED: HOME MED 1 EA UNK (Rivastigmine Tartrate [Rivastigmine] 3 MG Capsule) PO SCH (21:00)
[2022-08-25] MEDS ORDERED: SERTRALINE HCL 100 MG TAB PO SCH (21:00)
[2022-08-25] MEDS ORDERED: QUETIAPINE FUMARATE 50 MG PO SCH (21:00)
[2022-08-25] MEDS ORDERED: ENOXAPARIN 40 MG/0.4 ML SQ SCH (21:00)
[2022-08-26 06:30] LABS: Absolute Lymphocytes (CBC) 1.8 K/uL (0.7-4.9); Hematocrit 32.2 % (36.0-45.0); Lymphocytes % 38.4 % (15.3-44.8); MCV 95.8 fL (80-100); RBC Red Blood Cell Count 3.36 M/uL (3.86-4.86)
[2022-08-26 06:44] LABS: Albumin 2.5 g/dL (3.4-5.0); Bilirubin Total 0.4 mg/dL (0.2-1.0); Potassium 3.4 mmol/L (3.5-5.1); Protein, Total 5.2 g/dL (6.4-8.2)
[2022-08-26] MEDS ORDERED: PANTOPRAZOLE 40MG TABLET PO SCH (09:00)
[2022-08-26] MEDS ORDERED: LOSARTAN POTASSIUM 50 MG TABLET PO SCH (09:00)
[2022-08-26] MEDS ORDERED: FAMOTIDINE 20 MG TAB PO SCH (09:00)
[2022-08-26] MEDS ORDERED: HOME MED 1 EA UNK (Omeprazole [Omeprazole] 20 MG Capsule.Dr) PO SCH ×2 (09:00)
[2022-08-26] MEDS: MOLNUPIRAVIR 200 MG PO SCH (09:00)
[2022-08-26] MEDS ORDERED: AMLODIPINE 5 MG TAB PO SCH (09:00)
[2022-08-26] MEDS ORDERED: POTASSIUM CL SA 10 MEQ TAB PO ONE (09:38)
[2022-08-26] MEDS: RIVASTIGMINE TARTRATE 1.5 MG PO SCH (09:55)
[2022-08-26] MEDS: MEMANTINE HCL 10 MG TABLET PO SCH (10:01)
[2022-08-26] MEDS: METOPROLOL TAR 50 MG TAB PO SCH (10:02)
[2022-08-26] MEDS ORDERED: predniSONE 20 MG TAB PO ONE (12:00)
[2022-08-26 12:36] VITALS: BP 138/65; TEMP 98.3
[2022-08-26 12:42] VITALS: O2SAT 93
[2022-08-26] MEDS ORDERED: ATORVASTATIN 20 MG TAB PO SCH (17:30)
--- NOTE | 2022-08-28 08:00 | SS ---
Date of Discharge: 08/26/2022 Chief Complaint: Feeling weak and low oxygen level. History Of Present Illness: This is an 87-year-old pleasant female patient, who was evaluated on via tele visit for COVID-19 infection. The patient was tested positive on 08/24/2022 for COV ID-19 infection and her symptoms started 2 days prior to that with cough, congestion, sore throat, fe ar, and fatigue. Decision was made to start her on antiviral therapy and she was started on molnupi ravir. The patient was brought into emergency room yesterday because her oxygen saturation had dropp ed down into 80s and she was feeling very weak and tired and after she was evaluated in ER, the patie nt was admitted to the hospital. After her admission to hospital, her antiviral therapy was continue d and she was started on IV fluid and this morning when I saw her, she was sitting at bedside, feelin g a lot better, looking a lot better and her daughter was present with her at bedside, and the patien t did not require any oxygen and saturation this morning was 94%. The patient's daughter reports mere t the patient looks and feels 100% better this morning compared to yesterday. Allergies: NO KNOWN ALLERGIES. Medications: Atorvastatin 20 mg daily in the evening, amlodipine 5 mg daily, iron 1 tablet daily, fl uticasone nasal spray 1 spray each nostril 2 times a day, losartan 50 mg daily, meloxicam 7.5 mg brandon y as needed for arthritis, memantine 10 mg 2 times a day, metoprolol tartrate 50 mg 1 tablet 2 times a day, omeprazole 40 mg daily, Seroquel 50 mg daily at bedtime, rivastigmine 3 mg daily, sertraline 1 00 mg daily. Review of Systems: Constitutional: As mentioned above. Respiratory: As mentioned above. All other systems reviewed and negative. Past Medical History: Significant for dementia, peripheral neuropathy, impaired fasting glucose, hyp ertension, hyperlipidemia, gastroesophageal reflux disease, diverticulosis, colon cancer affecting as cending colon, ventral hernia. Past Surgical History: Cataract surgery, partial resection of colon due to cancer in 2005, basal [place] l carcinoma excision. Family History: Father , had SD and diabetes. Mother , had SD. Brother , had alcoholis m, pancreatic cancer and liver disease. Sister with multiple sclerosis. Son has hypertension a nd diabetes. Social History: Prior history of smoking, not at present time. Use of alcohol, occasional glass of wine. Physical Examination: Vital Signs: Upon admission; temperature 98.5, pulse 60, respiratory rate 18, blood pressure 104/60, oxygen saturation was 93%. This morning; pulse 69, blood pressure 132/63, oxygen saturation 94% on room air. General: Awake, alert, oriented, not in distress. HEENT: Head atraumatic, normocephalic. Conjunctivae nonerythematous. Sclerae white. Mouth, no thr ush or edema noted. Ears/Nose, no mass, lesion, discharge noted. Neck: Supple. No JVD, lymph nodes, bruit, thyromegaly noted. Lungs: Bilateral good equal air entry. Clear to auscultation. No rhonchi. No rales. Heart: Normal heart sounds, no murmur or gallop. Abdomen: Soft, bowel sounds normal. No guarding, rigidity, tenderness, mass, hepatosplenomegaly, dis tention, or bruit noted. Extremities: No leg edema. No calf tenderness. Skin: No rash, ulcer, cellulitis. Lymphatics: No lymph node enlargement in neck, supraclavicular, infraclavicular region. Neuro: No focal neurological deficit. Chest: Unremarkable. External Genitalia: Deferred. Rectal: Deferred. Laboratory Data: Yesterday; white count 4, hemoglobin 12, platelets 174. This morning; white count 4.7, hemoglobin 10.8, platelets 162. Yesterday; sodium 138, potassium 3.5, chloride 102, bicarb 30, BUN 16, creatinine 0.89, glucose 140. Troponin 23.8. This morning; sodium 143, potassium 3.4, chlor ace 109, bicarb 28, BUN 20, creatinine 0.74, glucose 78. Liver function tests unremarkable. Alkalin e phosphatase 123. Urinalysis; 1+ protein, otherwise negative. COVID-19 test positive. Chest x-ray ; mild right lung opacity, may indicate mild pneumonia. Hospital Course: After the patient was evaluated in emergency room, she was admitted to hospital and the patient was admitted as inpatient, but her condition actually overnight with treatment has impro jaspreet and she has done better than expected with clinical improvement to the extent that this morning a fter I evaluated her, we feel comfortable her going home and she does not require ongoing hospitaliza tion. She received dexamethasone in the emergency room. Her antiviral treatment was continued. She has not required any more oxygen now and maintaining adequate oxygenation on room air and her appeti te has improved significantly this morning. Her IV fluid was given overnight and that actually has h elped her very well also. Her daughter was present with her at bedside and daughter is comfortable t aking her home. Discharge Diagnoses: 1.Acute respiratory failure with hypoxia. 2.COVID-19 infection. 3.COVID-19 pneumonia. 4.Volume depletion. 5.Senile dementia. 6.Peripheral neuropathy. 7.Hypertension. 8.Hyperlipidemia. 9.Gastroesophageal reflux disease. 10.Diverticulosis. 11.Colon cancer, ascending colon. 12.Impaired fasting glucose. Discharge Medications: 1.All prior home medication. 2.Prednisone 10 mg tablet. The patient will take 2 tablets by mouth daily for 4 days, then 1 tablet daily for 4 days, then half tablet daily for 4 days, then stop. 3.Follow up at my office week after. VIKY/MODL Voice ID: [id number] Report ID: [id number]
--- NOTE | 2022-08-28 17:02 | EKG ---
Test Date: 2022-08-25 Test Time: 10:12:39 Medical Collections Representative: VI MEASUREMENT RESULTS: Intervals: Rate: 57 TN: 188 QRSD: 98 QT: 444 QTc: 432 [place]: P: 58 TN: 188 QRS: -49 T: 3 INTERPRETIVE STATEMENTS: Sinus bradycardia Left axis deviation Abnormal ECG Compared to ECG 06/23/2018 23:34:19 Left-axis deviation now present Sinus rhythm no longer present Electronically Signed On 08-28-22 16:57:37 ASSOCIATE VICE PRESIDENT by Ivan Contreras
== END 2022-08-26 13:27 | disposition home or self-care (01) ==
LOC: ER 09:20 → INTOOBSV 12:07 → ERHOLD 12:07 → 4TH 14:40
PROVIDERS: ADMIT Internal Medicine; ATTEND Internal Medicine
DX: J96.01 Acute respiratory failure with hypoxia (principal); U07.1 COVID-19; J12.82 Pneumonia due to coronavirus disease 2019; E86.9 Volume depletion, unspecified; R53.1 Weakness; F03.90 Unspecified dementia, unspecified severity, without behavioral disturbance, psychotic disturbance, mood disturbance, and anxiety; G62.9 Polyneuropathy, unspecified; R73.01 Impaired fasting glucose; I10 Essential (primary) hypertension; E78.5 Hyperlipidemia, unspecified; K21.9 Gastro-esophageal reflux disease without esophagitis; K57.90 Diverticulosis of intestine, part unspecified, without perforation or abscess without bleeding; Z85.038 Personal history of other malignant neoplasm of large intestine; Z82.49 Family history of ischemic heart disease and other diseases of the circulatory system; Z80.9 Family history of malignant neoplasm, unspecified; Z23 Encounter for immunization
CPT/HCPCS: 85025 ×2; 81001; 80048; 36415; 81003; 84484; 80053; 71045; 96374; 99285; U0003; J7512; J1650; J1100; J7030; 93005; G0378

== ENCOUNTER 2023-04-05 18:00 | Inpatient (IN) | payer OTHER, BC ==
[2023-04-05 18:58] LABS: Absolute Lymphocytes (CBC) 2.1 K/uL (0.7-4.9); Hematocrit 36.9 % (36.0-45.0); Lymphocytes % 30.5 % (15.3-44.8); MCV 98.4 fL (80-100); MPV 6.7 fL (7.6-11.3); Platelets 259 thou/uL (152-406); RBC Red Blood Cell Count 3.75 M/uL (3.86-4.86)
[2023-04-05 19:05] LABS: Urine Bilirubin NEGATIVE (Negative); Urine Blood Negative (Negative); Urine Clarity Clear (Clear); Urine Color Light-Yellow (Yellow); Urine Glucose NEGATIVE (Negative); Urine Protein NEGATIVE (Negative); Urine Urobilinogen Normal (Normal); Urine pH 5.5 (5.0-7.0)
[2023-04-05 19:09] LABS: Potassium 3.9 mEq/L (3.5-5.1)
--- NOTE | 2023-04-05 19:48 | RAD REPORT ---
EXAM DESCRIPTION: RADChest Single View04/05/2023 7:40 pm CLINICAL HISTORY: cough, low O2 sat COMPARISON: Chest Single View dated 02/26/2023; Chest Single View dated 08/25/2022; Chest Single View dated 07/24/2022; Chest Single View dated 06/25/2018 TECHNIQUE: Portable AP view of the chest. FINDINGS: Right basilar patchy airspace opacities and interstitial prominence. No pneumothorax or ef fusion. The cardiomediastinal contours are unremarkable. IMPRESSION: New right basilar airspace and interstitial opacity, suggesting early pneumonia.
--- NOTE | 2023-04-05 19:56 | ER ---
Nurse's Notes [facility] Name: Kirsten Mayfield Age: 87 yrs Sex: Female : 1935 Arrival Date: 04/05/2023 Time: 18:00 Bed 7 Private MD: Diagnosis: Other pneumonia, unspecified organism;Hypoxia;Chronic kidney disease, unspecified Presentation: 04/05 18:06 Chief complaint: Patient states: she was sent by her home health nurse due to her ap3 oxygen in the 80's at home and abnormal lung sounds. patients daughter also reports the patient has been having diarrhea that is improving and she might have a UTI. Coronavirus screen: At this time, the client does not indicate any symptoms associated with coronavirus-19. Ebola Screen: No symptoms or risks identified at this time. Initial Sepsis Screen: Does the patient meet any 2 criteria? No. Patient's initial sepsis screen is negative. Does the patient have a suspected source of infection? No. Patient's initial sepsis screen is negative. Risk Assessment: Do you want to hurt yourself or someone else? Patient reports no desire to harm self or others. Onset of symptoms was April 01, 2023. 18:06 Method Of Arrival: Wheelchair ap3 18:06 Acuity: STEFFEN 3 ap3 Triage Assessment: 18:08 General: Appears in no apparent distress. Behavior is calm, cooperative, appropriate ap3 for age. Pain: Denies pain. Neuro: Level of Consciousness is awake, alert, obeys commands, Oriented to person, place, time, Appropriate for age. Neuro: Reports patients daughter reports the patient has been having intermittent "crazy thoughts and hallucinations" . Cardiovascular: Patient's skin is warm and dry. Respiratory: Airway is patent Respiratory effort is even, unlabored, Respiratory pattern is regular, symmetrical. : Parent/caregiver report the patient having. : Parent/caregiver report the patient having possible UTI. Historical: - Allergies: 18:08 No Known Allergies; ap3 - PMHx: 18:08 CHF; colon cancer; Dementia; DVT; GERD; HARD OF HEARING; Hernia; High Cholesterol; ap3 Hypertension; - PSHx: 18:08 colon surgery; ap3 - Immunization history:: Client reports receiving the 2nd dose of the Covid vaccine. - Social history:: Smoking status: Patient denies any tobacco usage or history of. Screenin:10 Abuse screen: Denies threats or abuse. Nutritional screening: No deficits noted. ap3 Tuberculosis screening: No symptoms or risk factors identified. 18:55 [facility] ED Fall Risk Assessment (Adult) History of falling in the last 3 months, ld1 including since admission No falls in past 3 months (0 pts). Assessment: 18:55 General: Appears in no apparent distress. comfortable, Behavior is calm, cooperative, ld1 appropriate for age. Pain: Denies pain. Neuro: Level of Consciousness is awake, alert, obeys commands, Oriented to person, place, time, situation. Cardiovascular: Capillary refill < 3 seconds Patient's skin is warm and dry. Respiratory: Airway is patent Respiratory effort is even, unlabored. GI: Abdomen is flat, non-distended, Reports diarrhea. : No signs and/or symptoms were reported regarding the genitourinary system. EENT: No signs and/or symptoms were reported regarding the EENT system. Derm: No signs and/or symptoms reported regarding the dermatologic system. Musculoskeletal: No signs and/or symptoms reported regarding the musculoskeletal system. 19:17 Reassessment: No changes from previously documented assessment. Patient and/or family vc1 updated on plan of care and expected duration. Pain level reassessed. Patient is alert, oriented x 3, equal unlabored respirations, skin warm/dry/pink. 20:30 Reassessment: No changes from previously documented assessment. Patient and/or family vc1 updated on plan of care and expected duration. Pain level reassessed. Patient is alert, oriented x 3, equal unlabored respirations, skin warm/dry/pink. Vital Signs: 18:06 BP 149 / 82; Pulse 64; Resp 18; Temp 98.7; Pulse Ox 95% ; ap3 18:06 Weight 51.26 kg; ap3 18:55 BP 146 / 45; Pulse 59; Resp 18; Pulse Ox 96% on R/A; Pain 0/10; ld1 19:00 BP 130 / 56; Pulse 59; Resp 18; Pulse Ox 94% ; vc1 20:00 BP 138 / 54; Pulse 58; Resp 18; Pulse Ox 92% on R/A; vc1 18:55 Pain Scale: Adult ld1 ED Course: 18:03 Patient arrived in ED. rg4 18:03 Brock Cook DO is Attending Physician. ms3 18:08 Triage completed. ap3 18:11 Arm band placed on right wrist. ap3 18:53 Inserted saline lock: 22 gauge in right antecubital area, using aseptic technique. ko1 Blood collected. 18:55 Patient has correct armband on for positive identification. Placed in gown. Bed in low ld1 position. Call light in reach. Side rails up X2. media monitor on. Pulse ox on. NIBP on. Door closed. Noise minimized. Warm blanket given. 18:55 Urinalysis w/ reflexes Sent. ld1 18:55 BMP Sent. ld1 18:55 CBC with Diff Sent. ld1 18:55 No provider procedures requiring assistance completed. ld1 19:15 Report received from Pierre RN. vc1 19:42 CXR XRAY In Process Unspecified. EDMS 19:54 Sourav Gonzalez MD is Hospitalizing Provider. ms3 20:20 Ernestina Meehan RN is Primary Nurse. vc1 04/06 00:16 Patient admitted, IV remains in place. vc1 00:17 Provided Education on: need for admit, safety. vc1 Administered Medications: 04/05 20:24 Drug: levofloxacin IVPB 500 mg Volume: 100 ml; Route: IVPB; Infused Over: 60 mins; vc1 Site: right antecubital; Medication: 18:11 VIS not applicable for this client. ap3 Outcome: 19:55 Decision to Hospitalize by Provider. ms3 04/06 00:15 Admitted to Med/surg accompanied by tech, via stretcher, room 216, Report called to [facility] BENJIE Baker Condition: good Instructed on the need for admit. 00:17 Patient left the ED. vc1 Signatures: Dispatcher [employer] EDMS Nellie Torres rg4 Mitra Nguyen RN RN ap3 Brock Cook DO DO ms3 Luana Cook RN RN ld1 Ernestina Meehan RN RN 1 Alea Marquez, BENJIE RN ko1
--- NOTE | 2023-04-05 19:56 | EDPHYS ---
Physician Documentation [facility] Name: Kirsten Mayfield Age: 87 yrs Sex: Female : 1935 Arrival Date: 04/05/2023 Time: 18:00 Bed 7 Private MD: ED Physician Brock Cook HPI: 04/05 18:18 This 87 yrs old Female presents to ER via Wheelchair with complaints of Low O2 Sent By herminio Gonzalez. 18:18 87-year-old female with past medical history of congestive heart failure, colon cancer, ms3 dementia, DVT, GERD, hard of hearing, hypertension presents to the emergency department as her oxygen level was in the 80s 2 days ago. Patient's daughter states they called Dr. Gonzalez and were instructed to come to the emergency department today. Patient denies pain. Patient denies nausea or vomiting.. Historical: - Allergies: 18:08 No Known Allergies; ap3 - PMHx: 18:08 CHF; colon cancer; Dementia; DVT; GERD; HARD OF HEARING; Hernia; High Cholesterol; ap3 Hypertension; - PSHx: 18:08 colon surgery; ap3 - Immunization history:: Client reports receiving the 2nd dose of the Covid vaccine. - Social history:: Smoking status: Patient denies any tobacco usage or history of. ROS: 18:18 Constitutional: Negative for fever, and chills. Neck: Negative for injury, pain, and ms3 swelling, Cardiovascular: Negative for chest pain, and palpitations. Respiratory: Negative for shortness of breath, cough, wheezing, and pleuritic chest pain. 18:18 Skin: Negative for injury, rash, and discoloration. 18:18 Abdomen/GI: Positive for diarrhea. 18:18 All other systems are negative. Exam: 18:18 Constitutional: This is a well developed, well nourished patient who is awake, alert, ms3 and in no acute distress. Head/Face: Normocephalic, atraumatic. Chest/axilla: Normal chest wall appearance and motion. Nontender with no deformity. Cardiovascular: Regular rate and rhythm with a normal S1 and S2. No gallops, murmurs, or rubs. Normal PMI, no JVD. No pulse deficits. Respiratory: Lungs have equal breath sounds bilaterally, clear to auscultation and percussion. No rales, rhonchi or wheezes noted. No increased work of breathing, no retractions or nasal flaring. Abdomen/GI: Soft, non-tender, with normal bowel sounds. No distension or tympany. No guarding or rebound. No evidence of tenderness throughout. Skin: Warm, dry with normal turgor. Normal color with no rashes, no lesions, and no evidence of cellulitis. MS/ Extremity: Pulses equal, no cyanosis. Neurovascular intact. Full, normal range of motion. Vital Signs: 18:06 BP 149 / 82; Pulse 64; Resp 18; Temp 98.7; Pulse Ox 95% ; ap3 18:06 Weight 51.26 kg; ap3 18:55 BP 146 / 45; Pulse 59; Resp 18; Pulse Ox 96% on R/A; Pain 0/10; ld1 19:00 BP 130 / 56; Pulse 59; Resp 18; Pulse Ox 94% ; vc1 20:00 BP 138 / 54; Pulse 58; Resp 18; Pulse Ox 92% on R/A; vc1 18:55 Pain Scale: Adult ld1 MDM: 18:18 Patient medically screened. ms3 18:18 Differential Diagnosis Pneumonia versus electrolyte abnormality versus UTI. ms3 19:55 Data reviewed: vital signs, nurses notes, lab test result(s), radiologic studies, plain ms3 films, and as a result, I will admit patient. Consideration of Admission/Observation Patient was admitted/placed on observation. Management of patient was discussed with the following: Hospitalist: Discussed case with Dr Gonzalez and he would like patient to be placed in inpatient. I considered the following discharge prescriptions or medication management in the emergency department Medications were administered in the Emergency Department. See OCT. 19:58 Independent interpretation of the following test(s) in the Emergency Department X-Ray: ms3 My interpretation is CXR image reviewed by me shows infiltrates in Right lower lung and LLL.. Historians other than the Patient: Daughter/Son: Patient's daughter- Reports O2 sats 80's at [facility]. Care significantly affected by the following chronic conditions: Hypertension. Counseling: I had a detailed discussion with the patient and/or guardian regarding the historical points, exam findings, and any diagnostic results supporting the discharge/admit diagnosis, lab results, radiology results, the need for further work-up and treatment in the hospital. 04/05 18:20 Order name: CBC with Diff; Complete Time: 19:39 ms3 04/05 18:20 Order name: BMP; Complete Time: 19:39 ms3 04/05 18:20 Order name: Urinalysis w/ reflexes; Complete Time: 19:39 ms3 04/05 18:52 Order name: Ova And Parasites ms3 04/05 18:52 Order name: Stool Culture ms3 04/05 18:52 Order name: C.difficile ms3 04/05 18:20 Order name: CXR XRAY; Complete Time: 19:50 ms3 04/05 18:20 Order name: IV; Complete Time: 18:55 ms3 04/05 18:20 Order name: IV Start; Complete Time: 18:55 ms3 Administered Medications: 20:24 Drug: levofloxacin IVPB 500 mg Volume: 100 ml; Route: IVPB; Infused Over: 60 mins; vc1 Site: right antecubital; Disposition Summary: 04/05/23 19:55 Hospitalization Ordered Hospitalization Status: Inpatient Admission ms3 Provider: Sourav Gonzalez ms3 [facility] ms3 Condition: Stable ms3 Problem: new ms3 Symptoms: are unchanged ms3 Bed/Room Type: Standard ms3 Room Assignment: 216(04/05/23 23:23) cg Diagnosis - Other pneumonia, unspecified organism ms3 - Hypoxia ms3 - Chronic kidney disease, unspecified ms3 Forms: - Medication Reconciliation Form ms3 - SBAR form ms3 - Leadership Thank You Letter ms3 Signatures: Dispatcher [employer] Anupama Sibley RN RN cg Prokisch, Amanda, RN RN ap3 Sims, Marcus, DO DO ms3 Ernestina Meehan RN RN vc1 Corrections: (The following items were deleted from the chart) 23: 19:55 ms3 cg
[2023-04-05] MEDS ORDERED: Levofloxacin500mg IV 500 MG/100 ML BAG IV ONE (20:22)
[2023-04-06] MEDS: Levofloxacin 750mg IV 750 MG/150 ML BAG IV SCH ×2 (01:15→23:37)
[2023-04-06] MEDS ORDERED: ACETAMINOPHEN 325 MG TABLET PO PRN (02:41)
[2023-04-06] MEDS ORDERED: ZIPRASIDONE MESYLA 20 MG/VIAL IM PRN (02:41)
[2023-04-06] MEDS ORDERED: WATER FOR INJ,STERILE 10 ML IM PRN (02:41)
[2023-04-06] MEDS ORDERED: NA CHLORIDE 0.9% 1,000 ML IV SCH (02:41)
[2023-04-06] MEDS ORDERED: ONDANSETRON 4 MG/2 ML VIAL IV PRN (02:41)
[2023-04-06] MEDS: ALBUTEROL 2.5 MG/3 ML NEB SOL NEB SCH ×5 (02:55→19:50)
[2023-04-06] MEDS: ENOXAPARIN 30 MG/0.3 ML SQ SCH (08:15)
[2023-04-06 08:31] LABS: C.diff Antigen/Toxin Ag neg : Tox neg (NEG : NEG)
[2023-04-06] MEDS: METOPROLOL TAR 50 MG TAB PO SCH ×2 (12:53→20:37)
[2023-04-06] MEDS: FAMOTIDINE 20 MG TAB PO SCH (12:53)
[2023-04-06] MEDS: RIVASTIGMINE TARTRATE 1.5 MG PO SCH ×2 (12:53→20:35)
[2023-04-06] MEDS: MULTIVITAMIN TAB PO SCH (12:53)
[2023-04-06] MEDS: MEMANTINE HCL 10 MG TABLET PO SCH ×2 (12:53→20:37)
--- NOTE | 2023-04-06 20:19 | HP ---
Date of Admission: 04/06/2023 Chief Complaint: Diarrhea and low oxygen level. History Of Present Illness: This is an 87-year-old female patient who was brought into emergency room with complaints of possibility of urinary tract infection as family was concerned about it along with some diarrhea and her oxygen saturation at home was low bit around 88% to 89%. After she came into emergency room, she was evaluated and admitted to the hospital with pneumonia problem. This morning when I saw her, she was lying in bed, not in any distress. Denies any complaints. Past Medical History: Significant for hypertension, nocturnal leg cramps, hyperlipidemia, colon cancer, diverticulosis, abdominal wall hernia, impaired fasting glucose, gastroesophageal reflux disease. Past Surgical History: Significant for partial colectomy in 2005 for colon cancer and removal of skin cancer. Family History: Significant for coronary artery disease, diabetes, hypertension. Social History: Negative for smoking or alcohol use. Allergies: NO KNOWN ALLERGIES. Review of Systems: GI: As mentioned above. Respiratory: As mentioned above. All other systems reviewed and negative Medications: List reviewed. Physical Examination: Vital Signs: This morning temperature 97.9, pulse 68, respiratory rate 16, blood pressure 137/61, oxygen saturation 98% on room air. General: Awake, alert, oriented, not in distress. HEENT: Head atraumatic, normocephalic. Conjunctivae nonerythematous. Sclerae white. Mouth, no thrush or edema noted. Ears/Nose, no mass, lesion, discharge noted. Neck: Supple. No JVD, lymph nodes, bruit, thyromegaly noted. Lungs: Presence of rales noted in the right lower lung field. Not using any accessory muscles of respiration. Heart: Normal heart sounds, no murmur or gallop. Abdomen: Soft, bowel sounds normal. No guarding, rigidity, tenderness, mass, hepatosplenomegaly, distention, or bruit noted. Extremities: No leg edema. No calf tenderness. Skin: No rash, ulcer, cellulitis. Lymphatics: No lymph node enlargement in neck, supraclavicular, infraclavicular region. Neuro: No focal neurological deficit. Chest: Unremarkable. External Genitalia: Deferred. Rectal: Deferred. Laboratory Data: White count 7, hemoglobin 12.5, platelets 259. Yesterday, sodium 138, potassium 3.9, chloride 106, bicarb 31, BUN 30, creatinine 1.10, glucose 136. Morning; sodium 142, potassium 4, chloride 111, bicarb 30, BUN 29, creatinine 0.95, and glucose 79. Chest x-ray showing right lower lobe infiltrate. Urinalysis normal. Stool for C. diff is pending. Impression: 1. Pneumonia. 2. Diarrhea, rule out Clostridium difficile colitis. 3. Senile dementia. 4. Peripheral neuropathy. 5. Hypertension. 6. Hyperlipidemia. 7. Gastroesophageal reflux disease. 8. Diverticulosis. 9. Colon cancer, ascending colon. 10. Impaired fasting glucose. Plan: We will go ahead and admit the patient to hospital for further evaluation and management of this problem. The patient is appropriate for inpatient and is expected to spend 2 midnights in hospital. We will monitor her vital signs including her oxygenation. Currently, she is not requiring any oxygen replacement therapy. Empiric antibiotic, Levaquin was started. We will continue that. Follow up on stool test results. Home medications will be continued per order and we will consult Physical Therapy. Start Lovenox for DVT prophylaxis and I will repeat chest x-ray tomorrow. Possible discharge to go home tomorrow depending on condition and I did discuss with the patient and subsequently her daughter about details and plan of treatment. VIKY/ABRAHAM Voice ID: [id number] ERA
[2023-04-06] MEDS ORDERED: SERTRALINE HCL 100 MG TAB PO SCH (21:00)
[2023-04-06] MEDS ORDERED: QUETIAPINE 100MG TAB PO SCH (21:00)
[2023-04-06] MEDS ORDERED: ATORVASTATIN 20 MG TAB PO SCH (21:00)
[2023-04-06 21:25] LABS: Urine Bacteria None Seen /HPF (<20); Urine Bilirubin NEGATIVE (Negative); Urine Blood Negative (Negative); Urine Clarity Clear (Clear); Urine Color Yellow (Yellow); Urine Glucose NEGATIVE (Negative); Urine Mucus Slight /HPF (None Seen); Urine Protein TRACE (Negative); Urine RBC <5 /HPF (None Seen); Urine Urobilinogen Normal (Normal)
[2023-04-07] MEDS: ALBUTEROL 2.5 MG/3 ML NEB SOL NEB SCH ×2 (01:55→07:50)
[2023-04-07] MEDS ORDERED: PANTOPRAZOLE 40MG TABLET PO SCH (06:30)
[2023-04-07] MEDS: MULTIVITAMIN TAB PO SCH (08:45)
[2023-04-07] MEDS: METOPROLOL TAR 50 MG TAB PO SCH (08:46)
[2023-04-07] MEDS: MEMANTINE HCL 10 MG TABLET PO SCH (08:47)
[2023-04-07] MEDS: FAMOTIDINE 20 MG TAB PO SCH (08:47)
[2023-04-07] MEDS: RIVASTIGMINE TARTRATE 1.5 MG PO SCH (08:47)
[2023-04-07] MEDS: ENOXAPARIN 30 MG/0.3 ML SQ SCH (08:47)
--- NOTE | 2023-04-07 08:47 | RAD REPORT ---
EXAM DESCRIPTION: RADMilanat Pa And Lat (2 Views)04/07/2023 7:28 am CLINICAL HISTORY: PNEUMONIA COMPARISON: Chest Single View dated 04/05/2023; Chest Single View dated 02/26/2023; Chest Single View dated 08/25/2022; Chest Single View dated 07/24/2022 TECHNIQUE: Portable AP view of the chest. FINDINGS: The lungs show improvement of aeration in the right base. Residual minimal blunting of the right costophrenic angle, could relate to pleural thickening. Background hyperlucency and chronic in terstitial changes suggestive of COPD. No pneumothorax or effusion. The cardiomediastinal contours a re unremarkable. IMPRESSION: Interval improvement, as above.
[2023-04-07 08:48] VITALS: BP 140/68
[2023-04-07 09:36] VITALS: O2SAT 93
[2023-04-07 09:51] VITALS: TEMP 98.6
--- NOTE | 2023-04-07 18:06 | DS ---
Date of Discharge: 04/07/2023 Disposition: Discharged to go home. Physical Examination: HEENT: Unremarkable. Lungs: Clear to auscultation. Abdomen: . Bowel sounds normal. No guarding, rigidity, tenderness, distention. Extremities: No leg edema. Discharge Medications And Instructions: 1.Continue all prior home medication. 2.Take next Levaquin 500 mg 1 tablet by mouth daily for 5 days. 3.Follow up at office next week. 4.Use incentive spirometer every hour while awake during daytime as suggested. Hospital Course: This is an 87-year-old pleasant female patient admitted to the hospital after she c jorge into emergency room with complaints of diarrhea, low oxygen level and concern about possibility o f urinary tract infection. Please see dictated H and P for more information. The patient was chip ledbetter in the ER. She was admitted to the hospital. Her urinalysis was normal. Stool for C difficile came back negative. Stool culture is pending, which I will follow up on outpatient basis. Her diarr hea is chronic, nothing new. She had partial colectomy done in the past for colon cancer that could contribute to diarrhea along with certain food. May or may not agree with her in terms of digestion humphrey and she might end up having diarrhea with certain food and I have asked her and her daughter sonia ayers to start paying attention to see if her diarrhea is more pronounced after certain food, then she s hould start avoiding this kind of food. If diarrhea gets really bad, she can use Imodium, but there is a risk of Imodium causing constipation and all those details were discussed with her. Her initial chest x-ray had shown right basal infiltrate. Repeat chest x-ray today shows improvement in that. She was given IV Levaquin, which she received and overall condition has improved. The patient has no t required any supplemental oxygen during this hospitalization, and her oxygen level has remained mor e than 90%. Daughter is requesting walker with wheels, seat, and brake, and she will black pickler prescri ption from office. Laboratory Data: WBC count 7, hemoglobin 12.5, platelets 259. Upon admission, sodium 138, potassium 3.9, chloride 106, bicarb 31, BUN 30, creatinine 1.10, glucose 136. Yesterday, sodium 142, potassiu m 4, chloride 111, bicarb 30, BUN 29, creatinine 0.95, glucose 79. Final Diagnoses: 1.Pneumonia. 2.Diarrhea, chronic. 3.Mild dementia. 4.Peripheral neuropathy. 5.Hypertension. 6.Hyperlipidemia. 7.Gastroesophageal reflux disease. 8.Diverticulosis. 9.Colon cancer, ascending colon. 10.Impaired fasting glucose. 11.Chronic obstructive pulmonary disease. VIKY/MODL Voice ID: [id number] Report ID: [id number]
[2023-04-09] MEDS ORDERED: Levofloxacin 750mg IV 750 MG/150 ML BAG IV SCH (01:00)
== END 2023-04-07 12:08 | disposition home or self-care (01) | DRG 194 ==
LOC: ER 18:00 → ERHOLD 23:16 → 2ND 23:36
PROVIDERS: ADMIT Internal Medicine; ATTEND Internal Medicine
DX: J18.9 Pneumonia, unspecified organism (principal); J44.0 Chronic obstructive pulmonary disease with (acute) lower respiratory infection; N39.0 Urinary tract infection, site not specified; I10 Essential (primary) hypertension; H91.90 Unspecified hearing loss, unspecified ear; E78.00 Pure hypercholesterolemia, unspecified; K52.9 Noninfective gastroenteritis and colitis, unspecified; G62.9 Polyneuropathy, unspecified; K21.9 Gastro-esophageal reflux disease without esophagitis; K57.90 Diverticulosis of intestine, part unspecified, without perforation or abscess without bleeding; F03.90 Unspecified dementia, unspecified severity, without behavioral disturbance, psychotic disturbance, mood disturbance, and anxiety; Z86.718 Personal history of other venous thrombosis and embolism; Z85.038 Personal history of other malignant neoplasm of large intestine
CPT/HCPCS: 36415; 71045; 71046; 80048; 81001; 81003; 85025; 87045; 87046; 87177; 87209; 87324; 94640; 94760; 96374; 97116; 97161; 97530; 99285; J1650; J7030; J7613